=== PATIENT | male | born 1945 | race Hispanic/Latino ===

== ENCOUNTER 2017-05-31 12:36 | Outpatient (CLI) | payer MEDICARE, OTHER ==
[2017-05-31 13:29] LABS: Anion Gap 19 mmol/L (10-20); BUN (Urea Nitrogen) 7 mg/dL (8.4-25.7); Calc. Creatinine Clearance 0 mL/min (70-130); Calcium 9.9 mg/dL (7.8-10.44); Carbon Dioxide 27 mmol/L (23-31); Chloride 97 mmol/L (98-107); Estimated GFR-MDRD Greater than 90
[2017-05-31] MEDS ORDERED: Iopamidol 370 76% 100 ML VIAL ONE (16:32)
--- NOTE | 2017-05-31 19:16 | CT ---
CT ABDOMEN WITH AND WITHOUT IV CONTRAST CT PELVIS WITH AND WITHOUT IV CONTRAST: Date: 05-31-17 History: Urinary retention. Suprapubic catheter in place. Comparison: 11-11-15 FINDINGS: Lung bases remain clear. Again noted is partial visualization of the coronary artery calcifications as well as vascular calci fications in the abdominal aorta and iliac arteries. There is a stable left adrenal gland adrenal adenoma. 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 A suprapubic catheter is noted in place in a decompressed urinary bladder. Greer of the urinary blad daniela do appear thickened, likely related to combination of the decompressed nature of the urinary greg dder as well as chronic indwelling suprapubic catheter. The liver, spleen, pancreas, and right adrenal gland demonstrate a normal CT appearance. Tiny amount of free fluid is seen in the pelvis. Appendix is visualized and normal in caliber. There has been no other interval change compared to the prior study aside from interval placement of the suprapubic catheter. IMPRESSION: 1. Horseshoe shaped kidney with mild caliectasis unchanged from prior study. Ureters are normal in c aliber where visualized, and there is contrast seen in the urinary bladder on delayed images. 2. Urinary bladder is completely decompressed with Bae catheter in place. 3. No renal or ureteral calculi are seen bilaterally. 4. Stable left adrenal adenoma. 5. Small amount of free fluid in the pelvis. POS: [facility]
== END 2017-05-31 12:37 | disposition home or self-care (01) ==
LOC: CT 12:36
PROVIDERS: ATTEND Urology
DX: N31.2 Flaccid neuropathic bladder, not elsewhere classified (principal); R33.9 Retention of urine, unspecified; Q63.1 Lobulated, fused and horseshoe kidney
CPT/HCPCS: 36415; 74178; 80048

== ENCOUNTER 2017-08-30 08:43 | Emergency (ER) | payer MEDICARE, OTHER ==
[2017-08-30 09:23] LABS: #Eosinphils 0.1 thou/uL (0.0-0.7); #Lymphocytes 1.3 thou/uL (1.20-3.40); #Monocytes 0.3 thou/uL (0.11-0.59); %Basophils 0.4 % (0.0-1.0); %Eosinophils 1.1 % (0.0-10.0); %Lymphocytes 22.4 % (21.0-51.0); %Monocytes 5.7 % (0.0-10.0); %Neutrophils 70.4 % (42.0-75.0); Hemoglobin 15.4 g/dL (14.0-18.0); Mean Corpuscular HGB CONC 34.5 g/dL (32.0-36.0); Mean Corpuscular Hemoglobin 35.9 pg (27.0-31.0); Mean Platelet Volume 6.9 fL (7.4-10.4); Platelet Count 230 thou/uL (130-400); RBC Distribution Width 12.3 % (11.5-14.5); White Blood Cell (WBC) Count 5.6 thou/uL (4.8-10.8)
[2017-08-30 09:37] LABS: ALT (SGPT) Less than 7 U/L (8-55); AST (SGOT) 5 U/L (5-34); Albumin 3.3 g/dL (3.4-4.8); Alkaline Phosphatase 101 U/L (40-150); Anion Gap 23 mmol/L (10-20); BUN (Urea Nitrogen) 7 mg/dL (8.4-25.7); Bilirubin, Total 0.5 mg/dL (0.2-1.2); Calc. Creatinine Clearance 0 mL/min (70-130); Calcium 8.8 mg/dL (7.8-10.44); Carbon Dioxide 20 mmol/L (23-31); Chloride 92 mmol/L (98-107); Estimated GFR-MDRD 50; Globulin 2.7 g/dL (2.4-3.5); Sodium 131 mmol/L (136-145)
[2017-08-30 09:41] LABS: Bilirubin Negative (Negative); Blood, Urine Trace (Negative); Clarity CLOUDY (Clear); Glucose, Urine (Dipstick) >=1000 mg/dL (Negative); Leukocyte Moderate (Negative); Nitrite Negative (Negative); Protein, Urine (Dipstick) Negative (Neg-Trace); Specific Gravity, Urine 1.037 (1.002-1.036); Urobilinogen 0.2 mg/dL (0.2-1.0); pH, Urine 5.5 (5.0-9.0)
[2017-08-30 09:44] LABS: Pathc Cast-AUWi Flag 3.19 (0-2.49); Yeast-AUWi Flag 6103.8 (0-25.0)
[2017-08-30 09:50] LABS: Glucose 861 mg/dL (83-110)
[2017-08-30 09:57] LABS: Yeast-All Forms 4+ HPF (None Seen)
[2017-08-30 09:59] LABS: Bacteria/HPF 2+ HPF (None Seen); Hyaline Casts/LPF NONE SEEN LPF (0-3 Hyaline); Manual Microscopic Reviewed? No Path Casts Seen; Squamous Epithelial None Seen HPF (0-3)
[2017-08-30] MEDS ORDERED: Insulin Regular 300 UNITS/3 ML VIAL ONE (10:15)
[2017-08-30] MEDS ORDERED: Prochlorperazine 10 MG/2 ML VIAL IM SCH (10:15)
--- NOTE | 2017-09-25 18:59 | EKG ---
Test Reason : Blood Pressure : / mmHG Vent. Rate : 088 BPM Atrial Rate : 088 BPM P-R Int : 146 ms QRS Dur : 144 ms QT Int : 434 ms P-R-T Axes : 089 -86 045 degrees QTc Int : 525 ms Sinus rhythm with Premature atrial complexes Right bundle branch block Left anterior fascicular block Bifascicular block Abnormal ECG Confirmed by ANIYA RUIZ, MARYSOL Turner ([id number]), manuscript editor JUAN MANUEL YI ([id number]) on 09/25/2017 6:58:23 PM Referred By: Confirmed By:MARYSOL KWAN MD
== END 2017-08-30 14:55 | disposition home or self-care (01) ==
LOC: ERS 08:43
DX: E11.65 Type 2 diabetes mellitus with hyperglycemia (principal); F32.9 Major depressive disorder, single episode, unspecified; F17.210 Nicotine dependence, cigarettes, uncomplicated; Z79.4 Long term (current) use of insulin; Z79.899 Other long term (current) drug therapy; N40.0 Benign prostatic hyperplasia without lower urinary tract symptoms
CPT/HCPCS: 36415; 36416; 51702; 80053; 81003; 81015; 82803; 83605; 85025; 87086; 93005; 96361; 96372; 96374; J0780; J1815

== ENCOUNTER 2017-09-08 15:32 | Inpatient (IN) | payer MEDICARE, OTHER ==
--- NOTE | 2017-09-08 16:28 | CT ---
CT BRAIN NONCONTRAST: HISTORY: A 72-year-old male with altered mental status: confusion and decreased responsiveness. FINDINGS: There is no midline shift or any other mass effect. There is no evidence of acute intracranial hemor rhage, large cortical infarct, or extraaxial fluid collection. The calvarium is intact. There is di ffuse parenchymal volume loss. There are low attenuation areas in the white matter. These are nonsp ecific, but in a patient of this age, they are probably chronic ischemic white matter changes due to microvascular atherosclerosis. There is mild to moderate dilation of the lateral ventricles and the third ventricle, somewhat out of proportion to the cortical atrophy. This is probably on an ex vacuo basis due to brain parenchymal volume loss, and less likely to represent normal-pressure hydrocephal us. Recommend clinical correlation (is there is gait apraxia, urinary incontinence, and/or dimension ?). There is opacification of many of the bilateral mastoid air cells, right greater than left. The frontal and sphenoid sinuses are grossly clear. IMPRESSION: 1) No acute intracranial hemorrhage or mass effect. 2) Involutional changes and chronic ischemic white matter changes. 3) Ventriculomegaly. 4) Bilateral mastoid effusions, greater than left. jn [] POS: [facility]
--- NOTE | 2017-09-08 16:46 | RAD ---
CHEST ONE VIEW 09/08/17 HISTORY: Chest pain. Altered mental status. COMPARISON: 01/04/12. FINDINGS: The cardiac silhouette is magnified by projection. Pulmonary vasculature is unremarkable. Mediastinum is midline with aortic calcification. Ill-defined parenchymal infiltrate projects over the right base. Postoperative and old posttraumatic changes of the left shoulder are partially visualized. Old right clavicular fracture is also evident. IMPRESSION: 1. Subtle right basilar infiltrate. Clinical correlation regarding other signs and symptoms of r ight basilar pneumonitis is required. Continued radiographic followup after medical treatment is [place]. 2. COPD. 3. Atherosclerosis. POS: [facility]
[2017-09-08] MEDS ORDERED: NACL ISO OSM IVPB SCH ×2 (17:15)
[2017-09-08] MEDS ORDERED: Sodium Chloride 0.9% 1,000 ML IV SCH (17:15)
[2017-09-08] MEDS ORDERED: FLUCONAZOLE IVPB SCH ×2 (17:15)
[2017-09-08] MEDS ORDERED: ADMIXTURE FEE CHEMO IVPB SCH ×2 (17:15)
[2017-09-08 17:18] LABS: Base Excess-Venous -0.1 mmol/L (-30.0-30.0); Bicarbonate (HCO3v) 23.6 mmol/L (1.0-85.0); CO2 Tension (PvCO2) 35.2 mmHg (41.0-51.0); Calcium, Ionized 0.96 mmol/L (1.12-1.32); Hemoglobin - Calc 18.8 g/dL (12.0-18.0); O2 Tension (PvO2) 33.1 mmHg (35.0-45.0); Potassium 3.1 mmol/L (3.4-4.7); T. Carbon Dioxide 24.6 mmol/L (1.0-85.0); pH (Venous) 7.433 (7.35-7.45); vO2 Saturation-calc 66.4 % (0.0-100.0)
[2017-09-08 17:28] LABS: #Eosinphils 0.1 thou/uL (0.0-0.7); #Lymphocytes 1.2 thou/uL (1.20-3.40); #Monocytes 0.6 thou/uL (0.11-0.59); #Neutrophils 4.3 thou/uL (1.40-6.50); %Basophils 0.2 % (0.0-1.0); %Eosinophils 0.8 % (0.0-10.0); %Lymphocytes 20.1 % (21.0-51.0); %Monocytes 9.8 % (0.0-10.0); %Neutrophils 69.1 % (42.0-75.0); Hemoglobin 16.3 g/dL (14.0-18.0); Mean Corpuscular HGB CONC 35.7 g/dL (32.0-36.0); Mean Corpuscular Hemoglobin 36.1 pg (27.0-31.0); Mean Platelet Volume 6.6 fL (7.4-10.4); Platelet Count 303 thou/uL (130-400); RBC Distribution Width 12.5 % (11.5-14.5); Red Blood Cell (RBC) Count 4.52 mill/uL (4.70-6.10); White Blood Cell (WBC) Count 6.1 thou/uL (4.8-10.8)
[2017-09-08 17:34] LABS: Bilirubin Small (Negative); Blood, Urine Large (Negative); Clarity TURBID (Clear); Glucose, Urine (Dipstick) >=1000 mg/dL (Negative); Leukocyte Moderate (Negative); Nitrite Negative (Negative); Protein, Urine (Dipstick) 100 mg/dL (Neg-Trace)
[2017-09-08 17:38] LABS: Pathc Cast-AUWi Flag 11.81 (0-2.49); Yeast-AUWi Flag 8511.6 (0-25.0)
[2017-09-08 17:43] LABS: ALT (SGPT) 7 U/L (8-55); AST (SGOT) 8 U/L (5-34); Albumin 3.4 g/dL (3.4-4.8); Alkaline Phosphatase 139 U/L (40-150); Anion Gap 27 mmol/L (10-20); BUN (Urea Nitrogen) 6 mg/dL (8.4-25.7); Bilirubin, Total 0.5 mg/dL (0.2-1.2); CKMB 2.2 ng/mL (0-6.6); Calc. Creatinine Clearance 0 mL/min (70-130); Calcium 9.4 mg/dL (7.8-10.44); Carbon Dioxide 20 mmol/L (23-31); Chloride 92 mmol/L (98-107); Estimated GFR-MDRD 73; Glucose 376 mg/dL (83-110); Protein, Total 6.4 g/dL (5.8-8.1); Sodium 135 mmol/L (136-145); Troponin I 0.013 ng/mL (< 0.028)
[2017-09-08 17:46] LABS: Hyaline Casts/LPF 0-3 HYALINE CAST LPF (0-3 Hyaline); Yeast-All Forms 3+ HPF (None Seen)
[2017-09-08 17:47] LABS: Bacteria/HPF 3+ HPF (None Seen)
[2017-09-08] MEDS ORDERED: NS 0.9% w/ 20 MEQ KCL 1,000 ML IV SCH (19:45)
--- NOTE | 2017-09-08 19:45 | CON ---
DATE OF CONSULTATION: 09/08/2017 PRIMARY CARE PHYSICIAN: Lara Wolf NP REASON FOR CONSULT: Mental status changes, hyperglycemia. HISTORY OF PRESENT ILLNESS: Mr. Solis is a 72-year-old male, , Citizen Of [place] speaking with history of poorly-controlled diabetes, noncompliant with medical therapy. He has a history of atonic bladder, failed CICs due to noncompliance. He developed subsequent epididymal orchitis in the past as he was noncompliant with CICs. He was subsequently transitioned to suprapubic tube which I have been changing every 6 weeks. He has a history of poorly compliance with medical and endocrinology followup. It took multiple trials to have patient be seen and followed up with Endocrinology. He continues to have poor dietary habits despite his hemoglobin A1c grossly elevated at 13.8. He previously presented to my office in late July as he pulled out his SPT catheter, this was replaced by my staff as I was out of the office. He came in today to my office for a suprapubic tube exchange; however, there is significant mental status change which he is confused, decreased mobility, appears cachectic. I did not want the patient driving further, as he drove himself to my office appointment. He denies history of fever. Upon exam, his mobility has decreased, and his suprapubic tube is not in situ. He does not recall when it was removed. Upon following up with his family per his , he did have a suprapubic tube yesterday; per patient, he does not recall why it no longer remains in place. Patient's suprapubic tube was replaced in my office 16-Martiniquais 30 mL, he previously had a 24-Martiniquais suprapubic tube. He states that he was in the emergency room 2 days ago, review of records relate that on 08/30/2017, he did present to the emergency room with glucose over 800, hemoglobin A1c 13.8/12. His vital signs demonstrated hypotension 80/50 in my office. Currently in the emergency room with IV fluid hydration, his blood pressure improved 119/73, 80, 20, 97.8. Due to mental status changes, and repeat presentation with poorly-controlled diabetes, I do recommend medical admission for workup for fatigue, mental status changes, as there was concern for diabetic ketoacidosis. PAST MEDICAL HISTORY: Diabetes, history of DKA in 2008, history of urinary retention, hypertension, followed by Dr. Randall, hyperlipidemia, history of right bundle-branch block, osteoarthritis; history of atrial fibrillation flutter, status post ablation, resolved; cardiomyopathy, mild; history of phimosis, history of poorly-controlled diabetes followed by Dr. Clarke. PAST SURGICAL HISTORY: Left rotator cuff surgery, cystoscopies cytology 2015. Urodynamics in 12/2015, suprapubic tube placement by Interventional Radiology in 08/2016 FAMILY HISTORY: Noncontributory. HOME MEDICATIONS: Include baby aspirin, Humalog, Levemir, vitamin D3. ALLERGIES: No known drug allergies. PHYSICAL EXAMINATION: VITAL SIGNS: In my office is 80/50, heart rate 64, temperature 97.5. The emergency room blood pressure 119/73, 80, 20, 97.8. GENERAL: Patient appears more alert, oriented x3. HEENT: Grossly unremarkable. HEART: Regular. LUNGS: Clear. ABDOMEN: Soft, there is gross laxity of his abdomen, generalized overall significant weight loss with evidence of some temporal wasting is appreciated. GENITOURINARY: I did replace his suprapubic tube in my office today, it is adequately secured, there is yellow urine with sediment to his debris. : Demonstrates phimosis with no obvious cellulitis, purulent discharge is not appreciated. There is no scrotal edema, cellulitic changes, fluctuant mass appreciated. EXTREMITIES: No cyanosis, clubbing or edema. PERTINENT LABS: PSA 0.3 in 07/2017. Previous cytology is negative. Recent creatinine is 1.4 up from baseline of 0.7-0.8. A1c variable from 13 to 12. Labs obtained by the emergency room are pending. IMPRESSION/PLAN: Mr. Solis is a 72-year-old male with history of poorly-controlled diabetes, noncompliant to medical therapy. Urologic issue of history of atonic bladder, on chronic SP tube. I replaced his Bae catheter today uneventfully, there is significant to his debris. Previous urine culture from the ER visit on 08/30/2017 demonstrates yeast species. As there are mental status changes, I would recommend treatment of his bacteruria/funguria/ . Repeat UA, C&S is pending. Diflucan IV is advised for now. Recommend medical admission due to poorly-controlled diabetes, mental status changes, cachexia. MTDD
[2017-09-08] MEDS ORDERED: Insulin Regular 100 units/100 ml in NS IVPB SCH (20:00)
[2017-09-08] MEDS ORDERED: Acetaminophen 325 MG TAB PO PRN (20:03)
[2017-09-08] MEDS ORDERED: Sodium Chloride 0.9% 1,000 ML IV PRN ×4 (20:03)
[2017-09-08] MEDS ORDERED: CCU Electrolyte Replacement 1 EACH IVPB SCH (20:03)
[2017-09-08] MEDS ORDERED: Dextrose 5 %-0.45 % NaCl 1,000 ML IV PRN (20:03)
[2017-09-08] MEDS ORDERED: NS 0.9% w/ 20 MEQ KCL 1,000 ML IV PRN ×2 (20:03)
[2017-09-08] MEDS ORDERED: Acetaminophen 650 MG Suppository PR PRN (20:03)
[2017-09-08] MEDS ORDERED: Potassium Chloride 40 MEQ in Premix Bag 1 BAG IVPB PRN (20:25)
[2017-09-08] MEDS ORDERED: Potassium Chloride 20 MEQ TAB PO PRN (20:25)
[2017-09-08] MEDS ORDERED: CCU ELECTROLYTE REPLACEMENT PROTOCOL FS PRN (20:25)
[2017-09-08] MEDS ORDERED: Magnesium 2 GM/NS 0.9% 100 ML 2 GM in Premix Bag 1 BAG IVPB PRN (20:25)
[2017-09-08] MEDS ORDERED: Magnesium Oxide 400 MG TAB PO PRN ×2 (20:25)
[2017-09-08] MEDS ORDERED: Potassium Phosphate 15 MMOL in Sodium Chloride 0.9% 250 ML 250 ML IV PRN (20:25)
[2017-09-08] MEDS ORDERED: Potassium Chloride 40 MEQ in Sodium Chloride 0.9% 250 ML 250 ML IVPB PRN (20:25)
[2017-09-08] MEDS ORDERED: Potassium Phosphate 9 MMOL in Sodium Chloride 0.9% 100 ML IVPB PRN (20:25)
[2017-09-08] MEDS ORDERED: Potassium Phosphate 12 MMOL in Sodium Chloride 0.9% 250 ML 250 ML IV PRN (20:25)
--- NOTE | 2017-09-08 20:58 | HP ---
PRIMARY CARE PHYSICIAN: Lara Wolf NP CHIEF COMPLAINT: Altered mental status. HISTORY OF PRESENT ILLNESS: Mr. Solis is a pleasant 72-year-old gentleman who was seen at [facility] on 09/08/2017, after he was sent to the emergency room by his urologist. He has a history of chronic suprapubic catheterization. He was seen at his urologist's office today for changing the suprapubic catheter. There, he was found to have confusion. He was also noted to h ave the suprapubic catheter removed. It was replaced by his urologist. He was then sent to the located within [facility] room for altered mental status. He denies any chest pain or shortness of breath. He denies any cough or fevers or chills. He report s losing weight. He reports that he was 265 pounds 8 years ago and is now 69 pounds. He denies any abdominal pain. He reports that he is compliant with his medications. REVIEW OF SYSTEMS: The following complete review of systems was negative, unless otherwise mentioned in the HPI or below: Constitutional: Weight loss or gain, ability to conduct usual activities. Sk in: Rash, itching. Eyes: Double vision, pain. ENT/Mouth: Nose bleeding, neck stiffness, pain, te nderness. Cardiovascular: Palpitations, dyspnea on exertion, orthopnea. Respiratory: Shortness of breath, wheezing, cough, hemoptysis, fever, or night sweats. Gastrointestinal: Poor appetite, abdo sonali pain, heartburn, nausea, vomiting, constipation, or diarrhea. Genitourinary: Urgency, frequen cy, dysuria, nocturia. Musculoskeletal: Pain, swelling. Neurologic/Psychiatric: Anxiety, depressi on. Allergy/Immunologic: Skin rash, bleeding tendency. PAST MEDICAL HISTORY: Significant for diabetes mellitus, urinary retention, hypertension, dyslipidem ia, right bundle branch block, osteoarthritis, atrial fibrillation/flutter, status post ablation, car diomyopathy, phimosis, and poorly-controlled diabetes. PAST SURGICAL HISTORY: Significant for left rotator cuff surgery, suprapubic catheter placement. FAMILY HISTORY: He denies any family history of coronary artery disease. PSYCHIATRIC HISTORY: Significant for depression. SOCIAL HISTORY: Patient reports smoking 6 or 7 cigarettes a day. He denies any alcohol use or recre ational drug use. ALLERGIES: No known drug allergies. CURRENT MEDICATIONS: Include Xyzal 5 mg daily; garlic 580 mg daily; Humalog insulin, unknown dose; t amsulosin 0.4 mg daily; and Levemir insulin, unknown dose. PHYSICAL EXAMINATION: GENERAL: Mr. Solis is awake and alert, not in acute distress. VITAL SIGNS: He is afebrile. Blood pressure is 119/66, pulse is 76. He is breathing at rate of 16 and saturating 95% on room air. He appears cachectic. EYES: No scleral icterus, no conjunctival pallor. ENT: Dry mucosal membranes, no oropharyngeal erythema or exudates. NECK: Supple, nontender, normal range of movement. Trachea is midline. RESPIRATORY: Accessory muscles of breathing are not active. Chest wall movements are symmetric bila terally. Lungs are clear to auscultation without wheeze, rhonchi, or crepitations. CARDIOVASCULAR: S1 and S2 are heard, regular. Peripheral pulses palpable. No carotid bruit, no per icardial rub. ABDOMEN: Soft, nontender, bowel sounds heard, suprapubic catheter in place, no hepatomegaly, no sple nomegaly. NEUROLOGIC: Cranial nerves II-XII intact. Deep tendon reflexes 2+. SKIN: No rashes or subcutaneous nodules. MUSCULOSKELETAL: Power is 5/5 in all 4 extremities. LYMPHATIC: No cervical lymphadenopathy. PSYCHIATRIC: Normal mood, normal affect, patient is oriented to person and place, not to time. LABORATORY DATA: Mr. Solis labs and investigations were reviewed. I reviewed his director appointment , which shows normal sinus rhythm. I also reviewed his chest x-ray, which shows no pulmonary infiltr ates. Radiologist reports suggest that there is an ill-defined parenchymal infiltrate over the right base. He had noncontrast CT scan of the brain, which did not show any acute intracranial abnormalit ies. He has bilateral mastoid effusions. Laboratory investigations show normal white count, normal hemoglobin, normal platelet count, decreased sodium of 135, normal potassium, decreased chloride of 9 2, decreased carbon dioxide of 20, elevated anion gap of 27, normal creatinine, normal lactic acid, u nremarkable liver profile, urinalysis positive for blood, bilirubin and leukocyte esterase, and eleva mariana beta-hydroxybutyrate of 7.95. ASSESSMENT AND PLAN: Mr. Solis is a pleasant 72-year-old gentleman who was seen at [facility] on 09/08/2017. His problem list includes: 1. Diabetic ketoacidosis. Mr. Solis is presenting with diabetic ketoacidosis. He will be admitted to the hospital for further management per diabetic ketoacidosis protocol. 2. Encephalopathy: He reportedly had altered mental status. He appears to be improving clinically. We will continue to monitor. We will check electrocardiogram to rule out acute coronary syndrome a s a cause of his altered mental status. I should note that he has a normal troponin I. 3. Urinary tract infection. His urinalysis is suggestive of urinary tract infection. Urologist is recommending, starting him on antibiotics as well as antifungals. This is based on his previous urin e culture results. I cannot start him on fluoroquinolones because of interaction with fluconazole. I will start him on meropenem to cover ESBL organisms for now. Antibiotic spectrum can be narrowed o nce culture results are available. 4. Hyponatremia: Mild, we will recheck. 5. Radiologist reports that chest x-ray suggestive of pneumonia. Clinically, he does not have any c ough. We will continue meropenem for now. 6. Hypertension: Monitor vital signs, titrate antihypertensives as needed. Many thanks for allowing me to participate in your patient's care. Please feel free to contact me wi th any questions or concerns. LEVEL OF RISK: High. LEVEL OF COMPLEXITY: High.
[2017-09-08 22:00] LABS: Anion Gap 24 mmol/L (10-20); BUN (Urea Nitrogen) 6 mg/dL (8.4-25.7); Calc. Creatinine Clearance 0 mL/min (70-130); Calcium 8.9 mg/dL (7.8-10.44); Carbon Dioxide 23 mmol/L (23-31); Chloride 95 mmol/L (98-107); Estimated GFR-MDRD Greater than 90; Glucose 279 mg/dL (83-110); Potassium 3.2 mmol/L (3.5-5.1); Sodium 139 mmol/L (136-145)
[2017-09-08] MEDS ORDERED: Meropenem 1 GM in Sodium Chloride 0.9% 100 ML IVPB SCH (22:00)
[2017-09-08] MEDS ORDERED: Piperacillin/Tazobactam 4.5 GM in Sodium Chloride 0.9% 100 ML IVPB SCH (22:00)
[2017-09-09] MEDS: Meropenem 1 GM in Sterile Water 20 ML SLOW IVP SCH ×4 (00:11→21:31)
[2017-09-09 01:14] LABS: Anion Gap 19 mmol/L (10-20); BUN (Urea Nitrogen) 6 mg/dL (8.4-25.7); Calc. Creatinine Clearance 71 mL/min (70-130); Calcium 8.9 mg/dL (7.8-10.44); Carbon Dioxide 24 mmol/L (23-31); Chloride 100 mmol/L (98-107); Estimated GFR-MDRD Greater than 90; Glucose 186 mg/dL (83-110); Potassium 3.4 mmol/L (3.5-5.1); Sodium 140 mmol/L (136-145)
[2017-09-09] MEDS: D5 1/2 NS w/20 mEq KCL 1,000 ML IV PRN ×2 (01:35→05:38)
[2017-09-09] MEDS: Nicotine 14 MG PATCH TD SCH ×2 (01:35→21:46)
[2017-09-09 05:44] LABS: #Eosinphils 0.1 thou/uL (0.0-0.7); #Lymphocytes 1.6 thou/uL (1.20-3.40); #Monocytes 0.5 thou/uL (0.11-0.59); #Neutrophils 2.8 thou/uL (1.40-6.50); %Basophils 0.7 % (0.0-1.0); %Eosinophils 1.4 % (0.0-10.0); %Lymphocytes 31.4 % (21.0-51.0); %Monocytes 10.4 % (0.0-10.0); Hemoglobin 13.8 g/dL (14.0-18.0); Mean Corpuscular HGB CONC 35.3 g/dL (32.0-36.0); Mean Corpuscular Hemoglobin 35.7 pg (27.0-31.0); Mean Platelet Volume 6.3 fL (7.4-10.4); Platelet Count 270 thou/uL (130-400); RBC Distribution Width 12.4 % (11.5-14.5); Red Blood Cell (RBC) Count 3.85 mill/uL (4.70-6.10); White Blood Cell (WBC) Count 5.1 thou/uL (4.8-10.8)
[2017-09-09 06:00] LABS: Anion Gap 12 mmol/L (10-20); BUN (Urea Nitrogen) 6 mg/dL (8.4-25.7); Calc. Creatinine Clearance 79 mL/min (70-130); Calcium 8.5 mg/dL (7.8-10.44); Carbon Dioxide 28 mmol/L (23-31); Chloride 102 mmol/L (98-107); Estimated GFR-MDRD Greater than 90; Glucose 145 mg/dL (83-110); Potassium 3.1 mmol/L (3.5-5.1); Sodium 139 mmol/L (136-145)
[2017-09-09 08:04] VITALS: BMI 21.9
--- NOTE | 2017-09-09 08:46 | PRG ---
DATE OF SERVICE: 09/09/2017 SUBJECTIVE: The patient is more alert, oriented x3, denies abdominal pain, penile scrotal discomfort. PHYSICAL EXAMINATION: VITAL SIGNS: 98.3, 64, 18, 96/54. I's and O's is 3100 in and 2100 out. Urine output is concentrated yellow. ABDOMEN: Soft, scaphoid, suprapubic tube site clean, dry, and intact. GENITOURINARY: Catheter is adequately secured. There is no evidence of penile scrotal edema or crepitus. Some purulent discharge at the prepuce. PERTINENT LABORATORY DATA AND IMAGING: White count is 5.1, hemoglobin 13.8, platelets 270. Sodium 139, potassium 3.1, 0.68 creatinine, lactic acid is within normal limits. Beta hydroxybutyrate is 7.95. Blood sugars have been running on admission 466, currently 180. CT of the brain, no acute findings. Chest x-ray is grossly unremarkable. Urinalysis greater than 1000 glucose, has evidence of bacteria and yeast species. It is colonized with squamous epithelials, as expected. IMPRESSION AND PLAN: Mr. Solis is a 72-year-old male, [place] speaking with history of diabetes, poorly controlled, noncompliance. 1. History of chronic suprapubic tube due to atonic bladder. He presented to my office yesterday with mental status changes. He was transitioned to the ER, admitted for diabetic ketoacidosis. Previous blood sugar 2 weeks ago in the emergency room of glucose greater than 800. Continue strict control of his diabetes. His urine culture as expected is colonized. I do feel at this point it is symptomatic urinary tract infection component in addition to his diabetic ketoacidosis, recommend aggressive treatment. Agree with Diflucan IV and meropenem for now. Blood culture is negative thus far. Pending his final culture, Infectious Disease consult will likely be required. CANDICE
[2017-09-09] MEDS: Enoxaparin Sodium 40 MG/0.4 ML SYRINGE SC SCH (09:34)
[2017-09-09] MEDS ORDERED: Dextrose 50% Abboject 50 ML SYRINGE IVP PRN (12:11)
[2017-09-09] MEDS ORDERED: Dextrose 5% in Water 1,000 ML IV PRN (12:11)
[2017-09-09] MEDS: Sodium Chloride 0.45% 1,000 ML IV SCH ×2 (13:26→21:31)
--- NOTE | 2017-09-09 15:39 | PDOC.PN ---
- Subjective Encounter Start Date: 09/09/17 Encounter Start Time: 15:30 Subjective: Feeling better. Less confused. - Objective MAR Reviewed: Yes Vital Signs & Weight: Vital Signs (12 hours) Temp Pulse Resp BP BP Pulse Ox 09/09/17 11:56 97.5 F L 72 18 112/67 97 09/09/17 08:00 97.6 F 77 16 90 L 09/09/17 07:38 97.6 F 72 18 105/65 99 09/09/17 04:05 98.3 F 64 18 96/54 L 96 Weight Admit Weight 124 lb 5 oz Weight 131 lb 15.993 oz I&O: 09/08/17 09/09/17 09/10/17 06:59 06:59 06:59 Intake Total 2610 1377 Output Total 300 100 Balance 2310 1277 Result Diagrams: 09/09/17 05:21 09/09/17 05:21 Additional Labs: Accuchecks 09/09/17 09/09/17 09/09/17 11:04 09:59 08:59 POC Glucose 162 H 123 H 147 H 09/09/17 09/09/17 09/09/17 07:56 07:11 05:56 POC Glucose 156 H 180 H 149 H 09/09/17 09/09/17 09/09/17 05:02 04:07 03:00 POC Glucose 163 H 486 H 235 H 09/09/17 09/09/17 09/09/17 01:57 01:07 00:19 POC Glucose 215 H 183 H 275 H 09/08/17 23:11 POC Glucose 223 H Phys Exam - Physical Examination Constitutional: NAD HEENT: moist MMs Respiratory: no wheezing, no rales, no rhonchi Cardiovascular: RRR, no significant murmur Gastrointestinal: soft, non-tender, positive bowel sounds suprapubic cath in place Musculoskeletal: no edema Neurological: non-focal, moves all 4 limbs Psychiatric: normal affect, A&O x 3 Dx/Plan (1) UTI (urinary tract infection) due to urinary indwelling Bae catheter Code(s): T83.511A - I/I REACT D/T INDWELLING URETHRAL CATHETER, INIT; N39.0 - URINARY TRACT INFECTION, SITE NOT SPECIFIED Status: Acute Qualifiers: Indwelling urinary catheter type: cystostomy catheter Comment: On Fluconazole and Meropenem, urine culture pending (2) Diabetic ketoacidosis Code(s): E13.10 - OTH DIABETES MELLITUS WITH KETOACIDOSIS WITHOUT COMA Status : Resolved (3) DM2 (diabetes mellitus, type 2) Status: Chronic (4) Indwelling catheter present on admission Code(s): Z93.6 - OTHER ARTIFICIAL OPENINGS OF URINARY TRACT STATUS Status: Chronic - Plan cont current plan of care, continue antibiotics Gap acidosis resolved and blood sugars normalized. -: ? Pneumonia on CXR -: Awaiting culture results * . - Discharge Day Encounter end time: 16:00
[2017-09-09] MEDS ORDERED: Fluconazole In NaCl,Iso-Osm 200 MG in Premix Bag 1 BAG IVPB SCH ×2 (17:00)
[2017-09-09] MEDS: Insulin Regular 300 UNITS/3 ML VIAL SC PRN ×2 (18:17→21:34)
--- NOTE | 2017-09-09 21:01 | CON ---
DATE OF CONSULTATION: 09/09/2017 HISTORY OF PRESENT ILLNESS: Mr. Solis is a 72-year-old male. His urologist him to the ER, when he p resented to the office for changing of a suprapubic catheter and was felt to be confused. He subsequ ently has been admitted with a diagnosis of Diabetic ketoacidosis. PAST MEDICAL HISTORY: 1. Remarkable for diabetes type 2. 2. Urinary retention with SP tube in place. 3. Hypertension. 4. Lipid disorder. 5. Degenerative arthritis. 6. History of atrial fibrillation with an ablation. 7. History of cardiomyopathy. 8. History of rotator cuff surgery. 9. History of an ejection fraction of 45% in 2011. 10. History of an adrenal adenoma seen on CAT scans in the past. 11. History of coronary calcifications seen on CT in the past. 12. History of calcifications of the abdominal aorta, and iliac arteries. FAMILY HISTORY: Negative for lung disease at an early age. REVIEW OF SYSTEMS: Negative. His only complaint is he was not given breakfast he says he is fine ot herwise and does not want to be here. The remainder of ten point review of systems was negative. PHYSICAL EXAMINATION: VITAL SIGNS: Afebrile, heart rate 78, respiratory rate 18, oximetry is 94% on room air, blood pressu re 112/67 this afternoon. Vital signs are stable this morning. HEENT: Pupils are equal. Sclerae is anicteric. NECK: Supple. Extraocular movements are full. LUNGS: Clear. HEART: Regular rhythm, no S3. ABDOMEN: Soft and nontender. EXTREMITIES: Without clubbing, cyanosis, or edema. LABORATORY AND X-RAY FINDINGS: He is oriented x3. He knew it was the and knew that it was , but he could not tell me that it was August. White count is 5.1, yesterday it was 6.1, hemogl obin 13.8, yesterday was 16.3, MCV 101, platelets 270,000. Sodium 139, potassium 3.2, chloride 102, bicarbonate 20, BUN 6, creatinine 0.68, glucose was 466 on admission I found on August 30, glucose w as greater than 550. IMPRESSION: Intravascular volume depletion, resolving with volume resuscitation. Intake and output is positive 2109 and his creatinine has come down as his hemoglobin. I doubt this is diabetic ketoac idosis. Most likely type 2 diabetes with mild hyperosmolar syndrome associated with intravascular vo lume depletion. My question is ability to care for himself. He lives at home with his and she probably is not e ntirely capable of caring for him. He needs hydration, his insulin drip needs to be stopped. He will be transferred out of the [facility] care unit to a medical bed. He was started on Diflucan for yeast isolated in his urine, but he has a suprapubic catheter and will always have an organism isolated from his urine. It is extremely unlikely that he has a Rubia bacteremia, it would justify the use of antifungal agents. I wonder what his baseline mental status is and wonder if he has some multi infarct dementia/white ma tter disease owing to his diabetes. I do not think he has the clinical findings consistent with pneu monia. His radiographic abnormalities have been reviewed. This could simply be secondary to mucous plugging. His antimicrobial therapy can be simplified in the morning. Transfer home probably in 24 to 48 hours with a review of his 's ability to care for him to be considered. This is a 50-minute consult, greater than 50% of the time was spent in coordinating care as well as r eviewing old records, old radiographs. There is no family available to confer with.
[2017-09-10 05:47] LABS: #Eosinphils 0.1 thou/uL (0.0-0.7); #Lymphocytes 1.6 thou/uL (1.20-3.40); #Monocytes 0.4 thou/uL (0.11-0.59); #Neutrophils 2.6 thou/uL (1.40-6.50); %Basophils 0.9 % (0.0-1.0); %Eosinophils 1.7 % (0.0-10.0); %Lymphocytes 33.9 % (21.0-51.0); %Monocytes 8.7 % (0.0-10.0); %Neutrophils 54.8 % (42.0-75.0); Hemoglobin 13.4 g/dL (14.0-18.0); Mean Corpuscular HGB CONC 35.1 g/dL (32.0-36.0); Mean Corpuscular Hemoglobin 35.8 pg (27.0-31.0); Mean Platelet Volume 6.3 fL (7.4-10.4); Platelet Count 258 thou/uL (130-400); RBC Distribution Width 12.7 % (11.5-14.5); Red Blood Cell (RBC) Count 3.75 mill/uL (4.70-6.10); White Blood Cell (WBC) Count 4.7 thou/uL (4.8-10.8)
[2017-09-10] MEDS: Insulin Regular 300 UNITS/3 ML VIAL SC PRN ×3 (05:55→17:27)
[2017-09-10] MEDS: Sodium Chloride 0.45% 1,000 ML IV SCH ×4 (05:57→22:46)
[2017-09-10] MEDS: Meropenem 1 GM in Sterile Water 20 ML SLOW IVP SCH ×2 (05:57→13:16)
[2017-09-10 06:11] LABS: Anion Gap 10 mmol/L (10-20); BUN (Urea Nitrogen) 5 mg/dL (8.4-25.7); Calc. Creatinine Clearance 104 mL/min (70-130); Calcium 8.4 mg/dL (7.8-10.44); Carbon Dioxide 30 mmol/L (23-31); Chloride 100 mmol/L (98-107); Estimated GFR-MDRD Greater than 90; Glucose 166 mg/dL (83-110); Potassium 3.7 mmol/L (3.5-5.1); Sodium 136 mmol/L (136-145)
[2017-09-10] MEDS: Enoxaparin Sodium 40 MG/0.4 ML SYRINGE SC SCH (07:56)
--- NOTE | 2017-09-10 08:17 | PRG ---
DATE OF SERVICE: 09/10/2017 SUBJECTIVE: The patient is feeling better. OBJECTIVE: VITAL SIGNS: Stable, afebrile. I's and O's are 3700 in, 2560 out. ABDOMEN: Soft, nontender, nondistended. GENITOURINARY: Suprapubic tube site with some purulent discharge; however, evidence of no crepitus. Suprapubic tube is adequately secured draining concentrated yellow urine with some sediment. Tight phimosis, some pustular discharge coming from the preputial site; however, there is no gross evidence of cellulitis, induration. There is no discharge per meatus. EXTREMITIES: No cyanosis, clubbing or edema. PERTINENT LABORATORY DATA: White count 4, hemoglobin 13, platelet 258. Sugars have been running from 123-206, of note, the patient previously had blood sugar on admission of 800. History of poorly controlled diabetes, hemoglobin A1c vary from 11-13. The cultures reviewed demonstrating blood culture negative, urine culture demonstrates Klebsiella, and yeast species. He was previously on Diflucan, which has been discontinued by the wire mill operator, the patient now on medical floor. IMPRESSION AND PLAN: Mr. Solis is a 72-year-old male with history of poorly controlled diabetes. 1. Medical noncompliance. 2. Advanced age, history of neurogenic bladder/atonic bladder due to poorly controlled diabetes. Currently managed with chronic SP tube. He presented to my office for mental status changes, blood sugar is grossly elevated. I do recommend the patient to restart on antifungal, as fungal infections are increased risk for patient with poorly controlled diabetes, if we are going to treat the antimicrobial, I do recommend treatment with antifungals as well. As such, I do recommend Infectious Disease consult for a course and antibiotic regimen to be delineated. We will restart antifungal until patient is seen by Infectious Disease. He will need aggressive treatment of his diabetes, aggressive antibiotic regimen, as he is high risk for recurrence of symptomatic infection. Job Order Clerk consult would be indicated, as I do have concerns regarding patient's self-care. CANDICE
[2017-09-10] MEDS: Fluconazole In NaCl,Iso-Osm 200 MG in Premix Bag 1 BAG IVPB SCH ×2 (08:53)
[2017-09-10] MEDS ORDERED: FLU VACC TS2017-18 (>65YR) 0.5 ML SYRINGE IM ONE (09:00)
[2017-09-10] MEDS ORDERED: Prevnar 13-Val Conj/PF 0.5 ML SYRINGE IM ONE (09:00)
--- NOTE | 2017-09-10 18:13 | PDOC.PN ---
- Subjective Encounter Start Date: 09/10/17 Encounter Start Time: 07:40 Pt seen for followup for UTI. Reports feeling better. No chest pain or shortness of breath. - Objective MAR Reviewed: Yes Vital Signs & Weight: Vital Signs (12 hours) Temp Pulse Resp BP Pulse Ox 09/10/17 08:00 97.8 F 75 16 106/78 96 Weight Admit Weight 124 lb 5 oz Weight 131 lb 15.993 oz I&O: 09/09/17 09/10/17 09/11/17 06:59 06:59 06:59 Intake Total 2610 3774 1981 Output Total 300 2500 500 Balance 2310 1274 1481 Result Diagrams: 09/10/17 05:06 09/10/17 05:06 Additional Labs: Accuchecks 09/10/17 09/10/17 09/09/17 12:07 04:50 19:21 POC Glucose 320 H 206 H 330 H 09/09/17 18:04 POC Glucose 358 H Phys Exam - Physical Examination Constitutional: NAD HEENT: moist MMs Neck: supple Respiratory: clear to auscultation bilateral Cardiovascular: RRR Gastrointestinal: soft suprapubic catheter; schaphoid abdomen Neurological: moves all 4 limbs Psychiatric: normal affect Skin: no rash Dx/Plan (1) UTI (urinary tract infection) due to urinary indwelling Bae catheter Code(s): T83.511A - I/I REACT D/T INDWELLING URETHRAL CATHETER, INIT; N39.0 - URINARY TRACT INFECTION, SITE NOT SPECIFIED Status: Acute Qualifiers: Indwelling urinary catheter type: cystostomy catheter (2) DM2 (diabetes mellitus, type 2) Status: Chronic (3) Protein-calorie malnutrition, moderate Code(s): E44.0 - MODERATE PROTEIN-CALORIE MALNUTRITION Status: Chronic - Plan continue antibiotics, PT/OT, out of bed/ambulate * . Continue accuchecks, insulin sliding scale. ID consult pending. Appreciate dietitian input. Review of Systems - Review of Systems Respiratory: negative: Cough, Dry, Shortness of Breath, Hemoptysis, SOB with Excertion, Pleuritic Pain, Sputum, Wheezing Cardiovascular: negative: chest pain, palpitations, orthopnea, paroxysmal nocturnal dyspnea, edema, light headedness - Medications/Allergies Allergies/Adverse Reactions: Allergies Allergy/AdvReac Type Severity Reaction Status Date / Time No Known Allergies Allergy Verified 09/09/17 01:25 Medications: Current Medications Acetaminophen (Tylenol) 650 mg PO Q4H PRN PRN Reason: Headache/Fever or Pain Acetaminophen (Tylenol) 650 mg [place] Q4H PRN PRN Reason: Headache/Fever or Pain Dextrose/Water (Dextrose 50%) 25 gm IVP PRN PRN PRN Reason: HYPOGLYCEMIA PROTOCOL Enoxaparin Sodium (Lovenox) 40 mg SC 0900 [facility] Last Admin: 09/10/17 07:56 Dose: 40 mg Glucagon (Glucagon) 1 mg IM PRN PRN PRN Reason: HYPOGLYCEMIA PROTOCOL Meropenem 1 gm/ Sterile Water 20 mls @ 240 mls/hr SLOW IVP Q8HR [facility] Last Admin: 09/10/17 13:16 Dose: 20 mls Sodium Chloride (1/2 Normal Saline) 1,000 mls @ 125 mls/hr IV .Q8H [facility] Last Admin: 09/10/17 17:30 Dose: 1,000 mls Dextrose/Water (D5w) 1,000 mls @ 0 mls/hr IV INF PRN; As Directed PRN Reason: HYPOGLYCEMIA PROTOCOL Fluconazole/Sodium Chloride (200 mg/ Device) 100 mls @ 100 mls/hr IVPB DAILY [facility] Last Admin: 09/10/17 08:53 Dose: 100 mls Insulin Human Regular (Humulin R) 0 units SC .MODERATE SLIDING SC PRN; Protocol PRN Reason: MODERATE SLIDING SCALE Last Admin: 09/10/17 17:27 Dose: 6 unit Nicotine (Nicoderm Patch) 14 mg TD Q24HR [facility] Last Admin: 09/09/17 21:46 Dose: 14 mg Sodium Chloride (Flush - Normal Saline) 10 ml IVF Q12HR [facility] Last Admin: 09/10/17 07:57 Dose: Not Given Sodium Chloride (Flush - Normal Saline) 10 ml IVF PRN PRN PRN Reason: Saline Flush
[2017-09-10 19:46] LABS: HIV (1/2) Antibody/Antigen Non-Reactive (NonReactive); HIV 1/2 INDEX 0.16 S/CO (<1.00)
[2017-09-10 19:46] LABS: Syphilis Antibody Nonreactive (Nonreactive); Syphilis Antibody Index 0.04 S/CO (<1.00 Non-Reactive)
--- NOTE | 2017-09-10 22:05 | CON ---
DATE OF CONSULTATION: 09/10/2017 REASON FOR CONSULTATION: Confusional state, diabetes mellitus type 2 with hyperglycemia and abnormal urinalysis with suprapubic catheter. HISTORY OF PRESENT ILLNESS: A 72-year-old with history of type 2 diabetes, urinary retention secondary to neurogenic bladder with chronic suprapubic catheterization for the past 3 years, hypertension and atrial fibrillation/ flutter, paroxysmal prior ablation who apparently accidentally removed the suprapubic catheter, was seen at his urologist's office and was confused and then suprapubic catheter was removed and was sent to the emergency room for management. Initial findings, blood pressure 119/66, pulse 76 and did not appear in distress. He was alert in the emergency room. Neck was supple. Lungs with symmetric clear breath sounds. Heart exam was normal. Initial laboratory data with a sodium 135, creatinine 1.01. Transaminases and alkaline phosphatase normal, bilirubin normal, albumin 3.4. Urinalysis with 7-10 wbc's, greater than 1000 glucose, protein 100, beta hydroxybutyrate 7.95, carbon dioxide 20, initial white cell count 6.1, hemoglobin 16, platelets 303 with 69% neutrophils, 20% lymphocytes, total neutrophil count was normal at 4.3 thus far , urine cultures with Klebsiella oxytoca greater than 100,000 yeast species, 25- 50,000 colonies per mL. Two sets of blood cultures, no growth at 48 hours. We had the last imaging studies include a brain CT with some enlargement of the ventricles, but most likely due to ex vacuo phenomenon from cortical atrophy, some evidence of microvascular disease in the brain. Chest x-ray is with evidence of COPD, subtle right basilar infiltrate. Previous CT of the abdomen and pelvis from May of last year with various calcifications horseshoe shaped kidney, suprapubic catheter with somewhat thickened urinary bladder [place] , small amount of free fluid in the pelvis and stable adrenal adenoma; in 2016, he had a testicular ultrasound which showed epididymal orchitis. The patient is currently awake and alert. He denies any headaches, visual symptoms, sore throat, odynophagia, dysphagia, no dyspnea, cough or sputum production. No abdominal pain, no back pain, no joint symptoms. He has had quite a bit of weight loss over the past few months. PAST MEDICAL HISTORY: Type 2 diabetes, hypertension, atrial fibrillation/ flutter with prior ablation, osteoarthritis, dyslipidemia, neurogenic bladder with suprapubic catheter for the past 3 years, cardiomyopathy, epididymal orchitis. PAST SURGICAL HISTORY: Rotator cuff surgery, left side and suprapubic catheterization. FAMILY HISTORY: Noncontributory. SOCIAL HISTORY: He lives in between [facility]. Still smoking daily and drinks 2 beers a day. No drug use. ALLERGIES: None. MEDICATIONS: Currently Tylenol, dextrose, Lovenox, Diflucan, meropenem. PHYSICAL EXAMINATION: VITAL SIGNS: Normal. O2 sats 96%. GENERAL: Awake, in no distress. SKIN: No areas of skin breakdown. The patient has a suprapubic catheter exit site which appears normal. There is a peripheral IV access. No lymphadenopathy. HEENT: Ocular movements are conjugate. Sclerae are white. Pupils are equal, conjunctivae normal. Nasal passages patent. 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 The oral cavity is moist with no lesions, only a few remaining teeth with marked decay and gum disease. NECK: Supple. No jugular vein distention or carotid bruits, no thyromegaly. LUNGS: With symmetric air entry, only scattered faint crackles in the right side at the base. HEART: S1, S2. Maybe a soft aortic murmur. ABDOMEN: Flat, soft, not distended or tender. No ascites. No bladder distention. : Genital and testicular area do not appear abnormal. EXTREMITIES: No joint inflammatory activity. Does have evidence of osteoarthritis. He is able to move extremities on command. Pulses are 1+ in dorsalis pedis. No edema. NEUROLOGIC: He is oriented. Follows commands. LABORATORY AND X-RAY FINDINGS: White cell count now is down to 4.7, hemoglobin 13, platelets 258 with 54% neutrophils; pH 7.43, is a venous pH; pCO2 of 35 and sodium now is 134, potassium 3.1, glucose 327. Lactic acid was 1.7. ASSESSMENT: 1. Diabetes type 2 with poor control. 2. Borderline acidosis. 3. Progressive weight loss. 4. Neurogenic bladder with suprapubic catheter, abnormal urinalysis with positive urine culture. 5. Confusional state. DISCUSSION: Differential diagnosis includes confusional state associated with malnutrition with possible micronutrient deficiency and vitamin deficiency, particularly the possibility of thiamine deficiency in view of malnutrition or other cofactor deficiency. An invasive infection appears less likely in view of lack of evidence of fever or neutrophilia. He only has a few WBCs in UA an otherwise chronically catheterized bladder which is expected to have chronic colonization. At this point, I would continue with just a few more days of antimicrobial therapy after discharge planning, on oral quinolones. Switch him to oral Cipro or levofloxacin. Discontinue meropenem. The yeast is probably more of a colonizer than anything, we would not think that treatment is necessary for that finding. The mild dilatation of the ventricles may be a concern, particularly in reference to normal pressure hydrocephalus. The radiologist thinks that it is more likely that this represents an ex vacuo phenomenon; however, he does have some balance issues and has had recurrent falls in the past. We will also check HIV and RPR just in case in view of his relative lymphocytopenia, any abnormalities in the neuro examination. To make a long story short, check for cofactor deficiencies. Will need improvement diabetes mellitus control and looks like he is developing more full insulin- dependent phenotype than type 2 phenotype at this point in time with slight acidosis. Check RPR discharge on just few days of oral quinolone. The intention here is not to eradicate all colonization from the bladder sensitive since this is not going to be feasible with an indwelling catheter. [facility]
[2017-09-10] MEDS: Nicotine 14 MG PATCH TD SCH (22:43)
[2017-09-11] MEDS: Sodium Chloride 0.45% 1,000 ML IV SCH ×4 (01:37→17:28)
[2017-09-11 04:46] LABS: #Eosinphils 0.1 thou/uL (0.0-0.7); #Lymphocytes 1.7 thou/uL (1.20-3.40); #Monocytes 0.5 thou/uL (0.11-0.59); #Neutrophils 2.4 thou/uL (1.40-6.50); %Basophils 0.2 % (0.0-1.0); %Eosinophils 1.8 % (0.0-10.0); %Lymphocytes 36.8 % (21.0-51.0); %Monocytes 9.8 % (0.0-10.0); %Neutrophils 51.4 % (42.0-75.0); Hemoglobin 12.9 g/dL (14.0-18.0); Mean Corpuscular HGB CONC 35.2 g/dL (32.0-36.0); Mean Platelet Volume 6.4 fL (7.4-10.4); Platelet Count 223 thou/uL (130-400); RBC Distribution Width 12.6 % (11.5-14.5); Red Blood Cell (RBC) Count 3.58 mill/uL (4.70-6.10); White Blood Cell (WBC) Count 4.6 thou/uL (4.8-10.8)
[2017-09-11 04:58] LABS: Anion Gap 8 mmol/L (10-20); BUN (Urea Nitrogen) 6 mg/dL (8.4-25.7); Calc. Creatinine Clearance 106 mL/min (70-130); Calcium 8.2 mg/dL (7.8-10.44); Carbon Dioxide 32 mmol/L (23-31); Chloride 98 mmol/L (98-107); Estimated GFR-MDRD Greater than 90; Glucose 250 mg/dL (83-110); Potassium 3.8 mmol/L (3.5-5.1); Sodium 134 mmol/L (136-145)
[2017-09-11] MEDS: Insulin Regular 300 UNITS/3 ML VIAL SC PRN ×3 (05:11→17:28)
[2017-09-11] MEDS: Fluconazole In NaCl,Iso-Osm 200 MG in Premix Bag 1 BAG IVPB SCH ×2 (08:42)
[2017-09-11] MEDS: Enoxaparin Sodium 40 MG/0.4 ML SYRINGE SC SCH (08:42)
--- NOTE | 2017-09-11 12:06 | PRG ---
DATE OF SERVICE: 09/11/2017 INPATIENT PROGRESS NOTE SUBJECTIVE: The patient without complaints. States he is feeling well. OBJECTIVE: VITAL SIGNS: Stable, afebrile. I's and O's, urine output 4300 mL of clear dilute urine. ABDOMEN: Soft. SP tube site is clean, dry, and intact with no significant pustular discharge. GENITOURINARY: Uncircumcised phallus with a tight phimosis. Previous noted some pustular discharge at the prepuce has resolved. EXTREMITIES: No cyanosis, clubbing or edema. PERTINENT LABORATORY DATA: White count 4.6, hemoglobin 12.9, platelets 223, creatinine 0.5. Blood sugars running 322-400. Patient presented with glucose of 800 few weeks ago, history of poorly controlled diabetes, hemoglobin A1c variable from 11-13, repeat HIV is negative, syphilis negative. IMPRESSION AND PLAN: 1. Mr. Solis is a 72-year-old male with history of diabetes, poorly controlled with medical noncompliance. 2. Advanced age, deconditioned status. 3. 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 He is managed with chronic suprapubic tube. The patient has progressed in his deconditioned status, has lost a significant amount of weight. He continues to be noncompliant with diet at home. Recommend patient has a close followup with his benefit authorizer, Dr. Clarke. From urologic perspective, patient may be discharged. I did ask for case management, agree with long term placement given his deconditioned status. Disposition is pending. From a urologic perspective, he may be discharged to long term or home if medically stable. His routine follow up with me for interval suprapubic tube exchange. Appreciate Dr. Ortega's consult, regarding antibiotic , antifungal regimen. [facility]
--- NOTE | 2017-09-11 13:44 | PDOC.PN ---
- Subjective Encounter Start Date: 09/11/17 Encounter Start Time: 09:40 Pt seen for followup re: UTI. No complaints today. - Objective Vital Signs & Weight: Vital Signs (12 hours) Temp Pulse Resp BP Pulse Ox 09/11/17 12:07 98.6 F 83 16 110/69 94 L 09/11/17 08:00 97.7 F 79 16 09/11/17 07:23 97.7 F 79 16 135/70 94 L Weight Admit Weight 124 lb 5 oz Weight 131 lb 15.993 oz I&O: 09/10/17 09/11/17 09/12/17 06:59 06:59 06:59 Intake Total 3774 4288 480 Output Total 2500 4300 Balance 1274 -12 480 Result Diagrams: 09/11/17 03:46 09/11/17 03:46 Additional Labs: Accuchecks 09/11/17 09/10/17 09/10/17 04:53 19:15 16:54 POC Glucose 322 H 274 H 272 H Phys Exam - Physical Examination Constitutional: NAD HEENT: moist MMs Neck: supple Respiratory: clear to auscultation bilateral Cardiovascular: RRR suprapubic catheter Neurological: moves all 4 limbs Psychiatric: normal affect Dx/Plan (1) UTI (urinary tract infection) due to urinary indwelling Bae catheter Code(s): T83.511A - I/I REACT D/T INDWELLING URETHRAL CATHETER, INIT; N39.0 - URINARY TRACT INFECTION, SITE NOT SPECIFIED Status: Acute Qualifiers: Indwelling urinary catheter type: cystostomy catheter (2) DM2 (diabetes mellitus, type 2) Status: Chronic (3) Protein-calorie malnutrition, moderate Code(s): E44.0 - MODERATE PROTEIN-CALORIE MALNUTRITION Status: Chronic - Plan continue antibiotics, PT/OT, out of bed/ambulate * . * Appreciate ID service input. * Start levemir 50 units BID (lower dose than home dose, will titrate up if needed). Review of Systems - Review of Systems Respiratory: negative: Cough, Dry, Shortness of Breath, Hemoptysis, SOB with Excertion, Pleuritic Pain, Sputum, Wheezing Cardiovascular: negative: chest pain, palpitations, orthopnea, paroxysmal nocturnal dyspnea, edema, light headedness - Medications/Allergies Allergies/Adverse Reactions: Allergies Allergy/AdvReac Type Severity Reaction Status Date / Time No Known Allergies Allergy Verified 09/09/17 01:25 Medications: Current Medications Acetaminophen (Tylenol) 650 mg PO Q4H PRN PRN Reason: Headache/Fever or Pain Acetaminophen (Tylenol) 650 mg [place] Q4H PRN PRN Reason: Headache/Fever or Pain Dextrose/Water (Dextrose 50%) 25 gm IVP PRN PRN PRN Reason: HYPOGLYCEMIA PROTOCOL Enoxaparin Sodium (Lovenox) 40 mg SC 0900 [facility] Last Admin: 09/11/17 08:42 Dose: 40 mg Glucagon (Glucagon) 1 mg IM PRN PRN PRN Reason: HYPOGLYCEMIA PROTOCOL Sodium Chloride (1/2 Normal Saline) 1,000 mls @ 125 mls/hr IV .Q8H [facility] Last Admin: 09/11/17 08:42 Dose: 1,000 mls Dextrose/Water (D5w) 1,000 mls @ 0 mls/hr IV INF PRN; As Directed PRN Reason: HYPOGLYCEMIA PROTOCOL Fluconazole/Sodium Chloride (200 mg/ Device) 100 mls @ 100 mls/hr IVPB DAILY [facility] Last Admin: 09/11/17 08:42 Dose: 100 mls Insulin Human Regular (Humulin R) 0 units SC .MODERATE SLIDING SC PRN; Protocol PRN Reason: MODERATE SLIDING SCALE Last Admin: 09/11/17 11:56 Dose: 6 unit Levofloxacin (Levaquin) 500 mg PO 0600 [facility] Last Admin: 09/11/17 05:11 Dose: 500 mg Nicotine (Nicoderm Patch) 14 mg TD Q24HR [facility] Last Admin: 09/10/17 22:43 Dose: 14 mg Sodium Chloride (Flush - Normal Saline) 10 ml IVF Q12HR [facility] Last Admin: 09/11/17 08:42 Dose: Not Given Sodium Chloride (Flush - Normal Saline) 10 ml IVF PRN PRN PRN Reason: Saline Flush
[2017-09-11] MEDS ORDERED: Insulin Detemir 100 UNITS/ML 50 UNITS in Pre-Filled Syringe 1 EACH SC SCH (21:00)
[2017-09-11] MEDS: Nicotine 14 MG PATCH TD SCH (21:14)
[2017-09-12 04:35] LABS: Anion Gap 8 mmol/L (10-20); BUN (Urea Nitrogen) 8 mg/dL (8.4-25.7); Calc. Creatinine Clearance 122 mL/min (70-130); Calcium 8.4 mg/dL (7.8-10.44); Carbon Dioxide 34 mmol/L (23-31); Chloride 102 mmol/L (98-107); Estimated GFR-MDRD Greater than 90; Glucose 65 mg/dL (83-110); Potassium 3.5 mmol/L (3.5-5.1); Sodium 140 mmol/L (136-145)
[2017-09-12] MEDS: Sodium Chloride 0.45% 1,000 ML IV SCH ×3 (05:32→23:47)
[2017-09-12] MEDS: Enoxaparin Sodium 40 MG/0.4 ML SYRINGE SC SCH (07:54)
[2017-09-12] MEDS: Tamsulosin HCl 0.4 MG CAP PO SCH (07:54)
[2017-09-12] MEDS: Aspirin 81 mg Enteric Coated Tablet PO SCH (07:54)
[2017-09-12] MEDS: Fluconazole In NaCl,Iso-Osm 200 MG in Premix Bag 1 BAG IVPB SCH ×2 (07:54)
[2017-09-12] MEDS ORDERED: CRANBERRY FRUIT EXTRACT PO SCH (09:00)
[2017-09-12] MEDS ORDERED: VIT C PO SCH (09:00)
--- NOTE | 2017-09-12 12:07 | PRG ---
DATE OF SERVICE: 09/12/2017 PROGRESS NOTE SUBJECTIVE: The patient is resting comfortably; denies nausea, vomiting, fever. OBJECTIVE: VITAL SIGNS: Stable, afebrile. I's and O's 5160 in and 5300 out. Urine output is dilute clear. ABDOMEN: Soft. Suprapubic tube site is clean, dry, and intact. GENITOURINARY: Uncircumcised, moderate phimosis, no significant pustular discharge, no scrotal edema or tenderness is appreciated. PERTINENT LABORATORY DATA: No new labs. His CBC is stable. Blood sugars variable from 486-233. IMPRESSION AND PLAN: 1. Mr. Solis is a 72-year-old male with history of poorly controlled diabetes , known history of medical noncompliance. 2. Advanced age, progressive deconditioned status, significant weight loss. 3. He continues to have very poor diet at home. 4. 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 The patient has demonstrated on multiple occasions regarding his medical noncompliance. He has presented recurrently with significant elevated blood sugars. I did initiate a case management consult for shelter facility which he is refusing. I encouraged the patient to reconsider as he is high risk for recurrent admission/ recurrence of diabetic complications. The patient avoiding eye contact, I would encourage case management to rediscuss shelter facility as he states that he will reconsider. He has follow up with me for routine suprapubic tube exchange. He may be discharged with the suprapubic tube for routine followup when he is medically cleared. Disposition is pending. Antibiotic regimen per Infectious Disease. Please let me know when patient is ready for discharge as his suprapubic tube needs to be transitioned to a leg bag. 5. Recommend Hep-Lock IV as he is taking adequate orals. [facility]
--- NOTE | 2017-09-12 12:56 | PDOC.PN ---
- Subjective Encounter Start Date: 09/12/17 Encounter Start Time: 07:40 Pt seen for followup re: hypoglycemia. Denies chest pain or shortness of breath. - Objective MAR Reviewed: Yes Vital Signs & Weight: Vital Signs (12 hours) Temp Pulse Resp BP Pulse Ox 09/12/17 08:00 98.4 F 63 16 09/12/17 07:16 98.4 F 63 16 99/62 94 L Weight Admit Weight 124 lb 5 oz Weight 131 lb 15.993 oz I&O: 09/11/17 09/12/17 09/13/17 06:59 06:59 06:59 Intake Total 4288 5160 240 Output Total 4300 5300 Balance -12 -140 240 Result Diagrams: 09/11/17 03:46 09/12/17 03:56 Additional Labs: Accuchecks 09/12/17 09/12/17 09/11/17 11:35 05:12 20:14 POC Glucose 107 77 233 H 09/11/17 16:41 POC Glucose 256 H Phys Exam - Physical Examination Constitutional: NAD HEENT: moist MMs Neck: supple Respiratory: clear to auscultation bilateral Cardiovascular: RRR suprapubic catheter Neurological: moves all 4 limbs Psychiatric: normal affect Dx/Plan (1) Hypoglycemia Code(s): E16.2 - HYPOGLYCEMIA, UNSPECIFIED Status: Acute (2) UTI (urinary tract infection) due to urinary indwelling Bae catheter Code(s): T83.511A - I/I REACT D/T INDWELLING URETHRAL CATHETER, INIT; N39.0 - URINARY TRACT INFECTION, SITE NOT SPECIFIED Status: Acute Qualifiers: Indwelling urinary catheter type: cystostomy catheter (3) DM2 (diabetes mellitus, type 2) Status: Chronic (4) Protein-calorie malnutrition, moderate Code(s): E44.0 - MODERATE PROTEIN-CALORIE MALNUTRITION Status: Chronic - Plan continue antibiotics, PT/OT, out of bed/ambulate * . Decrease levemir dose to 25 units BID. Discontinue fluconazole, continue levofloxacin. Needs discharge planning. Review of Systems - Review of Systems Respiratory: negative: Cough, Dry, Shortness of Breath, Hemoptysis, SOB with Excertion, Pleuritic Pain, Sputum, Wheezing Cardiovascular: negative: chest pain, palpitations, orthopnea, paroxysmal nocturnal dyspnea, edema, light headedness - Medications/Allergies Allergies/Adverse Reactions: Allergies Allergy/AdvReac Type Severity Reaction Status Date / Time No Known Allergies Allergy Verified 09/09/17 01:25 Medications: Current Medications Acetaminophen (Tylenol) 650 mg PO Q4H PRN PRN Reason: Headache/Fever or Pain Acetaminophen (Tylenol) 650 mg [place] Q4H PRN PRN Reason: Headache/Fever or Pain Aspirin (Ecotrin) 81 mg PO DAILY [facility] Last Admin: 09/12/17 07:54 Dose: 81 mg Cholecalciferol (Vitamin D3) 1,000 units PO DAILY [facility] Last Admin: 09/12/17 07:54 Dose: 1,000 units Dextrose/Water (Dextrose 50%) 25 gm IVP PRN PRN PRN Reason: HYPOGLYCEMIA PROTOCOL Enoxaparin Sodium (Lovenox) 40 mg SC 0900 [facility] Last Admin: 09/12/17 07:54 Dose: 40 mg Glucagon (Glucagon) 1 mg IM PRN PRN PRN Reason: HYPOGLYCEMIA PROTOCOL Sodium Chloride (1/2 Normal Saline) 1,000 mls @ 125 mls/hr IV .Q8H [facility] Last Admin: 09/12/17 08:02 Dose: 1,000 mls Dextrose/Water (D5w) 1,000 mls @ 0 mls/hr IV INF PRN; As Directed PRN Reason: HYPOGLYCEMIA PROTOCOL Fluconazole/Sodium Chloride (200 mg/ Device) 100 mls @ 100 mls/hr IVPB DAILY [facility] Last Admin: 09/12/17 07:54 Dose: 100 mls Insulin Detemir 20 units/ (Miscellaneous Medication) 0.2 mls @ 0 mls/hr SC BID [facility] Insulin Human Regular (Humulin R) 0 units SC .MODERATE SLIDING SC PRN; Protocol PRN Reason: MODERATE SLIDING SCALE Last Admin: 09/11/17 17:28 Dose: 6 unit Levofloxacin (Levaquin) 500 mg PO 0600 [facility] Last Admin: 09/12/17 05:31 Dose: 500 mg Nicotine (Nicoderm Patch) 14 mg TD Q24HR [facility] Last Admin: 09/11/17 21:14 Dose: 14 mg Sodium Chloride (Flush - Normal Saline) 10 ml IVF Q12HR [facility] Last Admin: 09/12/17 07:55 Dose: Not Given Sodium Chloride (Flush - Normal Saline) 10 ml IVF PRN PRN PRN Reason: Saline Flush Tamsulosin HCl (Flomax) 0.4 mg PO DAILY [facility] Last Admin: 09/12/17 07:54 Dose: 0.4 mg
[2017-09-12] MEDS: Insulin Detemir 100 UNITS/ML 20 UNITS in Pre-Filled Syringe 1 EACH SC SCH (20:29)
[2017-09-12] MEDS: Nicotine 14 MG PATCH TD SCH (23:46)
[2017-09-13] MEDS: Sodium Chloride 0.45% 1,000 ML IV SCH ×2 (01:15→08:58)
[2017-09-13] MEDS: Insulin Regular 300 UNITS/3 ML VIAL SC PRN (05:23)
[2017-09-13 05:24] LABS: Anion Gap 9 mmol/L (10-20); BUN (Urea Nitrogen) 10 mg/dL (8.4-25.7); Calc. Creatinine Clearance 106 mL/min (70-130); Calcium 8.3 mg/dL (7.8-10.44); Carbon Dioxide 31 mmol/L (23-31); Chloride 100 mmol/L (98-107); Estimated GFR-MDRD Greater than 90; Glucose 187 mg/dL (83-110); Potassium 3.8 mmol/L (3.5-5.1); Sodium 136 mmol/L (136-145)
--- NOTE | 2017-09-13 06:44 | PRG ---
DATE OF SERVICE: 09/13/2017 SUBJECTIVE: The patient is resting comfortably. OBJECTIVE: VITAL SIGNS: Stable, afebrile. GENITOURINARY: Urine output is clear. Suprapubic tube site is clean, dry, and intact. SP tube was transitioned to leg bag with extension tubing StatLock x2. IMPRESSION AND PLAN: Mr. Solis is a 72-year-old male, Estonian speaking with history of med ical noncompliance, poorly controlled diabetes. 1. Advanced age, deconditioned status. 2. History of poor diet. 3. History of neurogenic bladder with atonic bladder. His suprapubic tube was replaced as he pulled it out due to encephalopathy, early diabetic ketoacidosis. The patient may be discharged home if me dically stable. I discussed with the patient that he should be transferred to senior living facili , which he adamantly declines. Recommend antibiotic regimen per Infectious Disease. He has electe d follow up with me for elective suprapubic tube exchange.
[2017-09-13] MEDS: Aspirin 81 mg Enteric Coated Tablet PO SCH (08:05)
[2017-09-13] MEDS: Tamsulosin HCl 0.4 MG CAP PO SCH (08:05)
[2017-09-13] MEDS: Enoxaparin Sodium 40 MG/0.4 ML SYRINGE SC SCH (08:06)
[2017-09-13] MEDS: Insulin Detemir 100 UNITS/ML 20 UNITS in Pre-Filled Syringe 1 EACH SC SCH (08:07)
[2017-09-13] MEDS: Fluconazole In NaCl,Iso-Osm 200 MG in Premix Bag 1 BAG IVPB SCH ×2 (08:58)
[2017-09-13 12:10] VITALS: BP 138/75; TEMP 97.2
--- NOTE | 2017-09-13 13:32 | DIS ---
DATE OF ADMISSION: 09/08/2017 DATE OF DISCHARGE: 09/13/2017 PRIMARY CARE PROVIDER: Lara Wolf NP. DISCHARGE DIAGNOSES: 1. Urinary tract infection with Klebsiella oxytoca and yeast species. 2. Diabetic ketoacidosis. 3. Hypoglycemic episodes. CONDITION OF PATIENT ON THE DAY OF DISCHARGE: Stable. I assess Mr. Solis on the day of discharge. He denies any chest pain or shortness of breath. Vital signs are stable. S1 and S2 are heard, regu lar. Lungs are clear to auscultation bilaterally. DISCHARGE MEDICATIONS: His Levemir dose was decreased to 20 units 2 times a day. He has been starte d on Levaquin 500 mg daily, 5 more days. He has also been started on Nicoderm 14 mg daily patch. He is continued on aspirin 81 mg daily, vitamin D3 1000 units daily, cranberry fruit extract 1 capsule daily, and Flomax 0.4 mg daily. HOSPITAL COURSE: Mr. Solis is a pleasant 72-year-old gentleman who was admitted to [facility] for diabetic ketoacidosis as well as urinary tract infection. He improved after be ing treated on the diabetic ketoacidosis protocol. He did have hypoglycemic episodes during this hos pitalization and his Levemir dose was decreased. He is advised to check his Accu-Cheks 3 times a day and show the readings to his primary care provider, so that his insulin dose can be adjusted. He was also found to have a urinary tract infection. He was seen by Dr. Ortega for Infectious Disease s Service. He is advised few days of fluoroquinolones. He was initially started on fluconazole, whi ch was subsequently discontinued. It was felt that the yeast species were colonizers. He had his anders prapubic catheter changed prior to this admission, through his urologist's office. He had a normal vitamin B12 level during this hospitalization. He also had nonreactive syphilis sero logy and nonreactive HIV serology. I had a lengthy discussion with the patient regarding admission to longterm facility. He did not wish to go to a longterm facility. I also discussed with him the possibility of home heal th with home nursing, OT and PT. He is making an informed decision not to have home services as well as not to go to longterm facility. Many thanks for allowing me to participate in your patient's care. Please feel free to contact me wi th any questions or concerns. CONSULTATIONS DURING THIS HOSPITALIZATION: Pulmonology, Dr. Painting; Infectious Diseases, Dr. Ortega, eliana nd Urology, Dr. Bose. DISCHARGE DESTINATION: Home. TOTAL AMOUNT OF TIME SPENT COORDINATING THIS DISCHARGE: 33 minutes.
== END 2017-09-13 12:21 | disposition home or self-care (01) | DRG 637 ==
LOC: ERS 15:32 → IMCU/EMU 23:05 → T4-A 09-09 17:08
PROVIDERS: ADMIT Internal Medicine; ATTEND Internal Medicine
DX: E11.10 Type 2 diabetes mellitus with ketoacidosis without coma (principal); G93.40 Encephalopathy, unspecified; R64 Cachexia; E44.0 Moderate protein-calorie malnutrition; I42.9 Cardiomyopathy, unspecified; N31.9 Neuromuscular dysfunction of bladder, unspecified; N39.0 Urinary tract infection, site not specified; T83.511A Infection and inflammatory reaction due to indwelling urethral catheter, initial encounter; B37.49 Other urogenital candidiasis; E87.1 Hypo-osmolality and hyponatremia; Z68.1 Body mass index [BMI] 19.9 or less, adult; R33.9 Retention of urine, unspecified; I45.10 Unspecified right bundle-branch block; E78.5 Hyperlipidemia, unspecified; I10 Essential (primary) hypertension; M19.90 Unspecified osteoarthritis, unspecified site; F17.210 Nicotine dependence, cigarettes, uncomplicated; Z91.14 Patient's other noncompliance with medication regimen; B96.1 Klebsiella pneumoniae [K. pneumoniae] as the cause of diseases classified elsewhere; E11.649 Type 2 diabetes mellitus with hypoglycemia without coma
CPT/HCPCS: 36415; 36416; 51710; 70450; 71045; 80048; 80053; 81003; 81015; 82010; 82180; 82330; 82553; 82607; 82803; 83605; 84425; 84484; 85025; 86780; 87040; 87077; 87086; 87186; 87389; 90471; 90670; 90682; 96361; 96365; 96366; 96368; 96375; 99215; 99406; A4216; G0008; G0009; G0463; J1450; J1650; J1815; J1956; J2185; J7050; Q2036

== ENCOUNTER 2017-09-27 12:23 | Inpatient (IN) | payer MEDICARE, OTHER ==
[2017-09-27 13:23] LABS: #Eosinphils 0.1 thou/uL (0.0-0.7); #Lymphocytes 1.4 thou/uL (1.20-3.40); #Monocytes 0.3 thou/uL (0.11-0.59); #Neutrophils 3.6 thou/uL (1.40-6.50); %Basophils 0.5 % (0.0-1.0); %Eosinophils 0.9 % (0.0-10.0); %Lymphocytes 26.6 % (21.0-51.0); %Monocytes 5.6 % (0.0-10.0); %Neutrophils 66.4 % (42.0-75.0); Hemoglobin 16.2 g/dL (14.0-18.0); Mean Corpuscular Hemoglobin 35.6 pg (27.0-31.0); Mean Platelet Volume 6.9 fL (7.4-10.4); Platelet Count 272 thou/uL (130-400); Red Blood Cell (RBC) Count 4.56 mill/uL (4.70-6.10); White Blood Cell (WBC) Count 5.4 thou/uL (4.8-10.8)
[2017-09-27 13:40] LABS: MDiff Complete? YES; Macrocytosis SLIGHT = 6-15 cells (100X) (0-5/hpf); PLT Morphology Comment Appears Adequate
[2017-09-27 13:53] LABS: ALT (SGPT) 14 U/L (8-55); AST (SGOT) 14 U/L (5-34); Albumin 4.1 g/dL (3.4-4.8); Alkaline Phosphatase 133 U/L (40-150); Anion Gap 16 mmol/L (10-20); BUN (Urea Nitrogen) 17 mg/dL (8.4-25.7); Bilirubin, Total 0.8 mg/dL (0.2-1.2); Calc. Creatinine Clearance 0 mL/min (70-130); Calcium 10.3 mg/dL (7.8-10.44); Carbon Dioxide 29 mmol/L (23-31); Chloride 95 mmol/L (98-107); Estimated GFR-MDRD 88; Globulin 3.8 g/dL (2.4-3.5); Potassium 5.1 mmol/L (3.5-5.1); Protein, Total 7.9 g/dL (5.8-8.1); Sodium 135 mmol/L (136-145)
[2017-09-27 13:59] LABS: Glucose 650 mg/dL (83-110)
--- NOTE | 2017-09-27 14:14 | RAD ---
PORTABLE CHEST 1 VIEW: Date: 09/27/17 Time: 1331 hours HISTORY: Shortness of breath, nausea, and vomiting. FINDINGS: Comparison made with exam of 09/08/17. The heart size is normal. There are mild patchy infiltrates in the lung bases. No pneumothoraces or p leural effusions are seen. There are postop changes in the left shoulder. Old right clavicular fractu re is again seen. IMPRESSION: Findings are suspicious for pneumonia. POS: [facility]
[2017-09-27] MEDS ORDERED: Insulin Regular 300 UNITS/3 ML VIAL ONE (14:36)
[2017-09-27] MEDS ORDERED: Dextrose 50% Abboject 50 ML SYRINGE SLOW IVP PRN (15:42)
[2017-09-27] MEDS ORDERED: Dextrose 5% in Water 1,000 ML IV PRN (15:42)
[2017-09-27] MEDS ORDERED: Acetaminophen 325 MG TAB PO PRN (15:44)
[2017-09-27] MEDS ORDERED: Ondansetron HCl/PF 4 MG/2 ML Vial IVP PRN (15:44)
[2017-09-27] MEDS ORDERED: HYDROcodone/Acetaminophen 5/325 mg Tablet PO PRN (15:44)
[2017-09-27] MEDS ORDERED: Milk Of Magnesia 30 ML UDCUP PO PRN (15:44)
[2017-09-27] MEDS ORDERED: Piperacillin/Tazobactam 3.375 GM in Sodium Chloride 0.9% 100 ML IVPB SCH (16:15)
[2017-09-27 17:05] LABS: Bilirubin Negative (Negative); Blood, Urine Moderate (Negative); Clarity TURBID (Clear); Glucose, Urine (Dipstick) 250 mg/dL (Negative); Leukocyte Large (Negative); Nitrite Positive (Negative); Protein, Urine (Dipstick) 100 mg/dL (Neg-Trace); Specific Gravity, Urine 1.031 (1.002-1.036); Urobilinogen 0.2 mg/dL (0.2-1.0)
[2017-09-27 17:09] LABS: Bacteria/HPF 4+ HPF (None Seen)
[2017-09-27 17:10] LABS: Pathc Cast-AUWi Flag 1459.35 (0-2.49)
[2017-09-27 17:21] LABS: Hyaline Casts/LPF NONE SEEN LPF (0-3 Hyaline); Other Casts/LPF None Seen LPF (0-3 Hyaline); Yeast-All Forms 1+ HPF (None Seen)
--- NOTE | 2017-09-27 17:25 | CON ---
DATE OF SERVICE: 09/27/2017. REASON FOR CONSULT: Malfunctioning of suprapubic tube. HISTORY OF PRESENT ILLNESS: Mr. Solis is a 72-year-old male, primary care physician Ms. Wolf, [place] speaking with history of poorly controlled diabetes, noncompliant. The patient initially presented to my office back in . He has failed clean intermittent catheterization due to atonic neurogenic bladder, has been subsequently transitioned to suprapubic tube placed by Interventional Radiology, 08/2016. Over the last few months, the patient has deconditioned significantly. He has significant weight loss, continues to have poorly controlled diabetes with A1c running in 13.8. He has left AMA on multiple admissions. I last saw the patient in-house, informed him that he is unable to take care of himself, informed the patient to be transferred to rehabilitation, which he declined. He came into my office this 09/24/2017, as a walk-in as his suprapubic tube was malfunctioning. Preceding this, the patient has pulled out his Bae catheter, which he does not recall the event. He has progressed significantly in his deconditioned status. He continues to have very poor diet. His sugars have been out of control. He currently presented to the ER as he states the catheter stopped draining. I have recently changed his catheter. His pre-existing Bae catheter was 24-[place] caliber, as he pulled the catheter out, we have been upsizing his suprapubic tube from 16 [place]. I have recently placed an 18- [place] two-way Bae, irrigated to clear. His presenting blood sugar is 650, creatinine of 0.8. Per ER, urine has been leaking around the catheter. On physical exam, a suprapubic tube is in place. I have removed the pre- existing catheter, a 22-[place] 30 mL was replaced uneventfully with significant pyocystis. 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 Endocrinology, Dr. Clarke. PAST SURGICAL HISTORY: 1. Left rotator cuff. 2. Cystoscopy demonstrating mild BPH, large capacity bladder, 11/2015. 3. Urodynamics demonstrated large capacity bladder, normal compliance with delayed sensation. 4. Suprapubic tube by IR, 09/04/2016. ALLERGIES: No known drug allergies. PHYSICAL EXAMINATION: GENERAL: The patient is in poor health, deconditioned status. He is oriented x2, provides his own subjective history, does not recall when his suprapubic tube stopped draining. HEENT: Grossly unremarkable. Poor dentition. Cachectic. ABDOMEN: Soft, scaphoid. SP tube site with no significant pustular discharge. He was formally prepped and draped and a new 22-[place] 30 mL suprapubic tube replaced uneventfully. There is significant pustular drainage consistent with pyocystitis. I did irrigate this gently with no resistance. EXTREMITIES: No cyanosis, clubbing, or edema. GENITOURINARY: Phimosis, unable to retract foreskin completely. No crepitus or induration noted. PERTINENT LABORATORY AND IMAGIN. Renal ultrasound, 04/2017. History of horseshoe kidney, mild dilation of the right collecting system, left extrarenal pelvis. 2. 05/2017 CT demonstrates horseshoe kidney, mild pelviectasis, contrast is seen all the way down to the bladder with no evidence of hydronephrosis, no renal bladder calculi appreciated. 3. Creatinine 0.8, blood sugar currently is 650. White count of 5, hemoglobin 16, platelets 272. Urinalysis was yet to be obtained. 4. Syphilis and HIV is nonreactive. IMPRESSION: 1. Mr. Solis is a 72-year-old male with history of poorly controlled diabetes. 2. Deconditioned status. 3. Cachectic. 4. Medical noncompliance. 5. Urologic issues of atonic neurogenic bladder, on chronic SP tube. PLAN: As previous, I informed the patient that he is too ill and fragile to be living in a private residence. On this admission, he is open to long term rehab facility, which will be best for the patient as he is unable to take care of himself. SP tube was exchanged in the ER uneventfully. Recommend panculture. Previously was seen by Infectious Disease, Dr. Ortega. Repeat consultation would be indicated if clinically warranted. I do expect bacteriuria, this does need to be treated as there is significant pyocystitis. May need antifungal as antimicrobial given his poorly controlled diabetes. [facility]
--- NOTE | 2017-09-27 18:47 | HP ---
PRIMARY CARE PHYSICIAN: Lara Wolf NP CHIEF COMPLAINT: "My blood sugar was high." HISTORY OF PRESENT ILLNESS: A 72-year-old male with a past medical history of chronic suprapubic catheter who presented to the emergency room after he reportedly checked his blood sugar and found it to be about 900. He reports no complaints. He denies cough, shortness of breath or sputum production. He has had no hematuria, urgency, frequency, abdominal pain. However, he reports that he has been having some difficulty in using his suprapubic catheter. Of note, he has been admitted recently in the hospital, the last one being a few weeks ago where possible rehab versus retirement unit discussed with the patient , but he refused, but states that this time, his is unable to further take care of him at home, so he would be willing to discuss rehabilitation options. At the emergency room, his CBC was largely unremarkable. Serum chemistry showed blood glucose greater than 550 with lactic acid of 2.4, but he had no anion gap. Urinalysis revealed markedly abnormal urine with blood, nitrite, leukocyte esterase, increased WBC and greater than 50 WBCs and bacteria. He had a chest x-ray as well which was abnormal showing bilateral lower lobe infiltrates, but on review this has been chronic and he has no respiratory symptoms. PAST MEDICAL HISTORY: Suprapubic catheter, diabetes mellitus (? type). PAST SURGICAL HISTORY: None. FAMILY HISTORY: Reviewed, not contributory. SOCIAL HISTORY: Admits to smoking cigarettes, but denies alcohol or illicit drug use. ALLERGIES: None. REVIEW OF SYSTEMS: Constitutional: Denies weight loss, fevers or chills. HEENT: Negative. Skin : Negative. Cardiovascular: Denies chest pain, shortness of breath, palpitation, lower extremity edema. Respiratory: Denies cough, shortness of breath or sputum production. Gastrointestinal: Per HPI. Genitourinary: Negative. Musculoskeletal: Negative. Psychiatric: Negative. Neurologic: Negative. Immunologic/Allergy: Negative. Hematologic: Negative. OTHER PAST MEDICAL HISTORY: Urinary retention, hypertension, dyslipidemia, right bundle block branch, osteoarthritis, atrial fibrillation/flutter, status post ablation, cardiomyopathy, phimosis and poorly controlled diabetes. PHYSICAL EXAMINATION: GENERAL: Alert and well oriented, not in acute distress. HEENT: Normocephalic, atraumatic. Not pale, anicteric. Moist mucous membranes. PERRLA, EOMI. NECK: Supple, full range of movement. RESPIRATORY: Clear to auscultation bilaterally. No wheezes or rales. CARDIOVASCULAR: S1 and S2. No murmurs, rubs or gallops. ABDOMEN: Soft, tender. Bowel sounds positive. Suprapubic catheter in place. No hepatosplenomegaly. NEUROLOGIC: Alert and oriented x3. No focal deficits. MUSCULOSKELETAL: Strength 5/5 in all extremities, moving down spontaneously. LYMPHATICS: No lymphadenopathy. PSYCHIATRIC: Normal mood and affect. SKIN: No rashes or lesions. LABORATORY DATA: As stated in HPI. IMAGING: As stated in HPI. ASSESSMENT: 1. Complicated urinary tract infection. 2. Hyperglycemia. 3. Diabetes mellitus with last A1c in 07/2017. 4. Abnormal chest x-ray. PLAN: 1. For his complicated UTI, his previous cultures grew Klebsiella oxytoca, which was sensitive to Zosyn. He has been started on Zosyn. We will follow up on cultures and sensitivities of his current urinalysis. Also we will get Urology consult for possibly changing of his suprapubic catheter. 2. Hyperglycemia. We will give him a fluid bolus and place him on maintenance fluids. His blood sugars responded to 10 units of regular insulin in the emergency room. We will restart him on his home regimen of insulin detemir 20 units b.i.d. with 7 units of NovoLog a.c. with meals. We will also institute sliding scale insulin, diabetic diet and hypoglycemia protocol. For his abnormal chest x-ray, this seems to be a chronic issue and he has no respiratory symptoms, so we will not treat SOCIAL ISSUES: The patient has required some extra level of assistance at home. Rehab discussed in the past. We will get child support case officer consult and also rehab screening to determine his disposition. For other medical conditions, we will continue his home medications and monitor his vital signs closely. CODE STATUS: FULL CODE. MTDD
[2017-09-27 18:58] VITALS: BMI 24.7
[2017-09-27] MEDS: Sodium Chloride 0.9% 1,000 ML IV SCH ×2 (19:00→20:00)
[2017-09-27] MEDS: HumaLOG 300 UNITS/3 ML VIAL SC PRN (20:12)
[2017-09-27] MEDS: Heparin 5,000 UNITS/ML VIAL SC SCH (20:12)
[2017-09-27] MEDS: Docusate 100 MG CAP PO SCH (20:13)
[2017-09-27 20:31] LABS: Lactic Acid 1.6 mmol/L (0.5-2.2)
[2017-09-27] MEDS: Insulin Detemir 100 UNITS/ML 20 UNITS in Pre-Filled Syringe 1 EACH SC SCH ×2 (21:00→22:23)
[2017-09-27] MEDS: Piperacillin/Tazobactam 3.375 GM in Sodium Chloride 0.9% 100 ML IVPB SCH (23:00)
[2017-09-28] MEDS: Piperacillin/Tazobactam 3.375 GM in Sodium Chloride 0.9% 100 ML IVPB SCH ×4 (01:17→18:05)
[2017-09-28] MEDS: Sodium Chloride 0.9% 1,000 ML IV SCH ×3 (01:18→18:39)
[2017-09-28 05:46] LABS: #Eosinphils 0.1 thou/uL (0.0-0.7); #Lymphocytes 1.4 thou/uL (1.20-3.40); #Monocytes 0.3 thou/uL (0.11-0.59); #Neutrophils 3.6 thou/uL (1.40-6.50); %Basophils 0.1 % (0.0-1.0); %Eosinophils 2.3 % (0.0-10.0); %Lymphocytes 25.9 % (21.0-51.0); %Monocytes 5.2 % (0.0-10.0); %Neutrophils 66.5 % (42.0-75.0); Anion Gap 10 mmol/L (10-20); BUN (Urea Nitrogen) 20 mg/dL (8.4-25.7); Calc. Creatinine Clearance 94 mL/min (70-130); Calcium 8.9 mg/dL (7.8-10.44); Carbon Dioxide 30 mmol/L (23-31); Chloride 101 mmol/L (98-107); Estimated GFR-MDRD Greater than 90; Glucose 215 mg/dL (83-110); Mean Corpuscular HGB CONC 34.5 g/dL (32.0-36.0); Mean Corpuscular Hemoglobin 35.6 pg (27.0-31.0); Mean Platelet Volume 6.6 fL (7.4-10.4); Platelet Count 270 thou/uL (130-400); Potassium 4.3 mmol/L (3.5-5.1); RBC Distribution Width 12.7 % (11.5-14.5); Red Blood Cell (RBC) Count 3.65 mill/uL (4.70-6.10); Sodium 137 mmol/L (136-145); White Blood Cell (WBC) Count 5.4 thou/uL (4.8-10.8)
--- NOTE | 2017-09-28 08:33 | PRG ---
DATE OF SERVICE: 09/28/2017 SUBJECTIVE: The patient is resting comfortably. OBJECTIVE: VITAL SIGNS: Stable. I's and O's are 1700 in, urine output 1300, clear. ABDOMEN: Soft, mild purulent discharge at the SP tube site. EXTREMITIES: No cyanosis, clubbing or edema. GENITOURINARY: Phimosis, minimal discharge at the meatus. PERTINENT LABORATORY DATA: White count 5, hemoglobin 13, platelet 270, elevated lactic acid on admission of 4.3, blood sugar on admission over 600 to 500. Renal function is stable at 0.69. Urine culture and blood culture is pending. IMPRESSION AND PLAN: Mr. Solis is a 72-year-old male with history of medical noncompliance. 1. History of poorly controlled diabetes, hemoglobin A1c running around 13 on average. 2. Recurrent ER presentation/ admission due to noncompliance. 3. Inability for self care. 4. History of neurogenic bladder secondary to poorly controlled diabetes, diabetic cystopathy on chronic SP tube. The patient over the last few months has progressed significantly in his deconditioned status as well as his ability to care for himself. He has a who is elderly, he is clearly not compliant with his diet as well as his medications as he presented with multiple ER presentation with elevated blood sugars. Moreover, he presented on numerous occasions as a walk-in to my appointments; which his suprapubic tube has been removed without his knowledge, history is unclear, or malfunctioning suprapubic tube. I changed his suprapubic tube yesterday to 22-Greek 30 mL, upon replacing the suprapubic tube, there was gross pyocystitis. His urine caliber has significantly improved with hydration and medical management. On last admission recently, I discussed with patient that he is too ill and frail to go home, he declined penitentiary, half-way facility. On this admission, he agrees to be evaluated for half-way, penitentiary placement as he is unable to take care of himself. Case management consultation has been obtained. His previous urine culture demonstrates Zosyn sensitivity; however, has component of yeast due to poorly controlled diabetes and we will add Diflucan for now until Infectious Disease has seen the patient. I do recommend his urine culture be treated, as he presents with elevated lactic acid, urine demonstrating gross pyocystitis, which has improved with hydration and medical regimen. [facility]
[2017-09-28] MEDS: Fluconazole In NaCl,Iso-Osm 200 MG in Premix Bag 1 BAG IVPB SCH ×2 (09:00)
[2017-09-28] MEDS: Docusate 100 MG CAP PO SCH ×2 (09:10→20:18)
[2017-09-28] MEDS: Insulin Detemir 100 UNITS/ML 20 UNITS in Pre-Filled Syringe 1 EACH SC SCH ×2 (09:11→20:17)
[2017-09-28] MEDS: Heparin 5,000 UNITS/ML VIAL SC SCH ×3 (09:12→20:18)
[2017-09-28] MEDS ORDERED: HumaLOG 300 UNITS/3 ML VIAL SC PRN (10:36)
--- NOTE | 2017-09-28 11:30 | PDOC.PN ---
- Subjective Encounter Start Date: 09/28/17 Encounter Start Time: 09:30 -: old records requested/rev Patient seen and examined. No new complaints. No overnight events pt decided not to go to rehab - Objective Resuscitation Status: Resuscitation Status FULL:Full Resuscitation MAR Reviewed: Yes Vital Signs & Weight: Vital Signs (12 hours) Temp Pulse Resp BP Pulse Ox 09/28/17 08:57 98.7 F 76 16 147/83 H 98 09/28/17 08:00 98.7 F 76 16 98 09/28/17 04:00 98.1 F 75 16 116/67 09/28/17 00:00 97.8 F 71 16 111/63 96 Weight Weight 149 lb I&O: 09/27/17 09/28/17 09/29/17 06:59 06:59 06:59 Intake Total 1700 Output Total 1300 Balance 400 Result Diagrams: 09/28/17 05:09 09/28/17 05:09 Additional Labs: Accuchecks 09/28/17 09/27/17 09/27/17 04:39 19:58 16:06 POC Glucose 250 H 296 H 276 H Phys Exam - Physical Examination Constitutional: NAD HEENT: PERRLA, moist MMs, sclera anicteric Neck: no JVD, supple Respiratory: no wheezing, no rales, no rhonchi Cardiovascular: RRR, no significant murmur, no rub Gastrointestinal: soft, non-tender, no distention, positive bowel sounds suprapubic cathteter+ Musculoskeletal: no edema, pulses present Neurological: non-focal, normal sensation Lymphatic: no nodes Psychiatric: normal affect Skin: no rash, normal turgor Dx/Plan (1) UTI (urinary tract infection) due to urinary indwelling Bae catheter Code(s): T83.511A - I/I REACT D/T INDWELLING URETHRAL CATHETER, INIT; N39.0 - URINARY TRACT INFECTION, SITE NOT SPECIFIED Status: Acute Qualifiers: Indwelling urinary catheter type: cystostomy catheter (2) Hyperglycemia due to type 2 diabetes mellitus Code(s): E11.65 - TYPE 2 DIABETES MELLITUS WITH HYPERGLYCEMIA Status: Acute Comment: due to noncompliance (3) Lactic acidosis Code(s): E87.2 - ACIDOSIS Status: Acute (4) BPH (benign prostatic hyperplasia) Code(s): N40.0 - BENIGN PROSTATIC HYPERPLASIA WITHOUT LOWER URINRY TRACT SYMP Status: Chronic (5) DM2 (diabetes mellitus, type 2) Status: Chronic (6) Macrocytic anemia Code(s): D53.9 - NUTRITIONAL ANEMIA, UNSPECIFIED Status: Chronic (7) Neurogenic bladder Code(s): N31.9 - NEUROMUSCULAR DYSFUNCTION OF BLADDER, UNSPECIFIED Status: Chronic (8) Protein-calorie malnutrition, moderate Code(s): E44.0 - MODERATE PROTEIN-CALORIE MALNUTRITION Status: Chronic - Plan cont current plan of care, continue antibiotics * urology recommendation noted * follow on blood and urine culture result * restart selected home medication * medication reviewed as below * symptomatic treatment. * continue zosyn * today will control diabetes Review of Systems - Review of Systems Constitutional: weakness. negative: fever, chills, sweats, malaise, other ENT: negative: Ear Pain, Ear Discharge, Nose Pain, Nose Discharge, Nose Congestion, Mouth Pain, Mouth Swelling, Throat Pain, Throat Swelling, Other Respiratory: negative: Cough, Dry, Shortness of Breath, Hemoptysis, SOB with Excertion, Pleuritic Pain, Sputum, Wheezing Cardiovascular: negative: chest pain, palpitations, orthopnea, paroxysmal nocturnal dyspnea, edema, light headedness, other Gastrointestinal: negative: Nausea, Vomiting, Abdominal Pain, Diarrhea, Constipation, Melena, Hematochezia, Other Genitourinary: negative: Dysuria, Frequency, Incontinence, Hematuria, Retention , Other Musculoskeletal: negative: Neck Pain, Shoulder Pain, Arm Pain, Back Pain, Hand Pain, Leg Pain, Foot Pain, Other - Medications/Allergies Allergies/Adverse Reactions: Allergies Allergy/AdvReac Type Severity Reaction Status Date / Time No Known Allergies Allergy Verified 09/27/17 19:01 Medications: Current Medications Acetaminophen (Tylenol) 650 mg PO Q4H PRN PRN Reason: Headache/Fever or Pain Hydrocodone Bitart/Acetaminophen ([place] 5/325) 1 tab PO Q4H PRN PRN Reason: Moderate Pain (4-6) Aspirin (Ecotrin) 81 mg PO DAILY [facility] Cholecalciferol (Vitamin D3) 1,000 units PO DAILY [facility] Dextrose/Water (Dextrose 50%) 25 gm SLOW IVP PRN PRN PRN Reason: Hypoglycemia Docusate Sodium (Colace) 100 mg PO BID [facility] Last Admin: 09/28/17 09:10 Dose: 100 mg Glucagon (Glucagon) 1 mg IM PRN PRN PRN Reason: Hypoglycemia Heparin Sodium (Porcine) (Heparin) 5,000 units SC TID [facility] Last Admin: 09/28/17 09:12 Dose: 5,000 units Dextrose/Water (D5w) 1,000 mls @ 0 mls/hr IV .Q0M PRN; As Directed PRN Reason: Hypoglycemia Sodium Chloride (Normal Saline 0.9%) 1,000 mls @ 75 mls/hr IV .[id number] [facility] Last Admin: 09/28/17 05:58 Dose: Not Given Piperacillin Sod/Tazobactam (Sod 3.375 gm/ Sodium Chloride) 100 mls @ 200 mls/ hr IVPB 0500,1100,1700,2300 [facility] Last Admin: 09/28/17 05:39 Dose: 100 mls Fluconazole/Sodium Chloride (200 mg/ Device) 100 mls @ 100 mls/hr IVPB DAILY [facility] Last Admin: 09/28/17 09:00 Dose: 100 mls Insulin Detemir 20 units/ (Miscellaneous Medication) 0.2 mls @ 0 mls/hr SC BID [facility] Insulin Human Lispro (Humalog) 0 units SC .MODERATE SLIDING SC PRN PRN Reason: Moderate [place] Scale Last Admin: 09/27/17 20:12 Dose: 6 unit Insulin Human Lispro (Humalog) 7 units SC TID-WM PRN PRN Reason: Hyperglycemia Magnesium Hydroxide (Milk Of Magnesium) 30 ml PO DAILYPRN PRN PRN Reason: Constipation Ondansetron HCl (Zofran) 4 mg IVP Q6H PRN PRN Reason: Nausea/Vomiting Tamsulosin HCl (Flomax) 0.4 mg PO DAILY [facility]
--- NOTE | 2017-09-28 15:38 | CON ---
DATE OF CONSULTATION: 09/28/2017 REASON FOR CONSULTATION: Pyocystis. HISTORY OF PRESENT ILLNESS: Mr. Solis is a 72-year-old gentleman who has a history of type 2 diabetes mellitus, urinary retention secondary to neurogenic bladder, chronic suprapubic catheterization for the past 3 years, atrial fib flutter with prior ablation, who I saw at end of August when apparently accidentally removed the suprapubic catheter. Our impression at that time was that he had a positive urine culture with lack of evidence to suggest an invasive inflammatory process for invasive UTI. He was given antimicrobials for few days and then discontinued. He also was noted to have somewhat dilated brain ventricles felt to be either ex vacuo phenomenon or normal pressure hydrocephalus. The patient at this time presents with reported history of extravasation of urine around his catheter associated with elevation in blood sugar. His glycine was found to be in 900, although he did not have any other symptoms such as absence of fever or chills, no headaches, no respiratory symptoms or abdominal pain, no diarrhea, but there was evidence of extravasation of large amounts of urine around the orifice of the suprapubic catheter exit site. PHYSICAL EXAMINATION: VITAL SIGNS: Initial findings included blood pressure 140/78, respiratory rate 18, temperature 97.9, all the other temperature measurement in the emergency room were within normal limits. Pertinent findings in the physical examination. NECK: Supple. LUNGS: With clear breath sounds. ABDOMEN: Soft and nontender. There was evidence of leakage around the suprapubic catheter. LABORATORY DATA: Initial laboratory data included white cell count of 5.4, hemoglobin 16, platelets 272 with normal differential and creatinine 0.69. Lactic acid was 4.3 and then 1.6. Urinalysis with greater than 50 wbc's. We will have a urine culture with a gram negative luci yet to be identified and susceptibility tested. Just a few days ago he had Klebsiella oxytoca isolated. One out of two sets of blood cultures with likely contaminants yet to be fully identified and susceptibility tested. Currently, Mr. Solis is awake. He denies any headaches. No shortness of breath, cough, sputum production or chest pain, no neck pain, no back pain, no abdominal pain. No diarrhea. No joint symptoms. PAST MEDICAL HISTORY: Type 2 diabetes, hypertension, atrial fibrillation, flutter with prior ablation, osteoarthritis, dyslipidemia, neurogenic bladder with suprapubic catheter for past 3 years, epididymal orchitis. PAST SURGICAL HISTORY: Rotator cuff surgery left and suprapubic catheterization. FAMILY HISTORY: Noncontributory. SOCIAL HISTORY: Lives with family members next to [place]. Still smokes daily and drinks 2 beers daily. ALLERGIES: None. CURRENT MEDICATIONS: Include Tylenol, [place], Ecotrin, vitamin D, Diflucan, glucagon, insulin, Zosyn, Flomax. PHYSICAL EXAMINATION: VITAL SIGNS: Have been normal with normal temperature, blood pressure 140/90, pulse 66, respirations 16, O2 sat 98%. SKIN: No areas of skin breakdown except for the suprapubic catheter area with some erythema noted. Peripheral IV access. Patient does not have a Bae catheter. No lymphadenopathy. HEENT: Ocular movements are conjugate. Sclerae white. Oral cavity with numerous missing teeth. Remainder ones with marked decay and gum disease. NECK: Supple. No jugular venous distention. LUNGS: With symmetric air entry. HEART: S1, S2, regular rate. No S3 or S4. ABDOMEN: Soft, but distended, mild tenderness in suprapubic area. EXTREMITIES: Able to move extremities well. NEUROLOGIC: He is awake, oriented, follows commands. LABORATORY DATA AND IMAGING DATA: Has been reviewed above as well as microbiology. Imaging reports includes a chest x-ray with patchy infiltrates in lung bases. Findings are fairly similar to the findings in August. ASSESSMENT AND PLAN: 1. Type 2 diabetes. 2. Neurogenic bladder. 3. Chronic suprapubic catheterization. 4. Pyocystis. 5. Extrusion of the Bae catheter managed with reintroduction recently, now with evidence of extravasation around the catheter. 6. Abnormal chest x-ray. DISCUSSION: The patient may present with intermittent obstruction of the suprapubic catheter due to the pyocystis with management including either systemic antimicrobial therapy with a combination of Diflucan plus quinolone or irrigation with urinary antiseptic. Those irrigations are usually uses a nonabsorbable antimicrobial and are done few times a day for a week or so. The administration of systemic antimicrobials may result in eventual replacement of the current organism, by more resistant pathogens. The patient probably needs to increase fluid intake to dilute his urine and maintain adequate flow through the bladder and suprapubic catheter allowing dilution of the urine and decrease the risk of recurrence of obstruction. The duration of therapy for this pyocystitis if given via the systemic route should be probably not more than what needed to decrease the inspissation of the urine, which should be able to be verified visually. I predict that probably 7 days should be enough. Again, protracted antimicrobial administration is likely to result in replacement by a more resistant pathogen. In this case, we should concentrate on measures that in the future, we will decrease the risk of recurrence of pyelocystitis, particularly increasing oral food intake. MTDD
[2017-09-29] MEDS: Sodium Chloride 0.9% 1,000 ML IV SCH ×3 (00:22→17:29)
[2017-09-29] MEDS: Piperacillin/Tazobactam 3.375 GM in Sodium Chloride 0.9% 100 ML IVPB SCH ×2 (00:25→05:36)
[2017-09-29] MEDS: Fluconazole In NaCl,Iso-Osm 200 MG in Premix Bag 1 BAG IVPB SCH ×2 (08:11)
[2017-09-29] MEDS: Insulin Detemir 100 UNITS/ML 20 UNITS in Pre-Filled Syringe 1 EACH SC SCH ×2 (08:12→20:50)
[2017-09-29] MEDS: Tamsulosin HCl 0.4 MG CAP PO SCH (08:13)
[2017-09-29] MEDS: Docusate 100 MG CAP PO SCH ×2 (08:13→20:49)
[2017-09-29] MEDS: Heparin 5,000 UNITS/ML VIAL SC SCH ×3 (08:14→20:49)
[2017-09-29] MEDS: Aspirin 81 mg Enteric Coated Tablet PO SCH (08:14)
--- NOTE | 2017-09-29 11:19 | PDOC.PN ---
- Subjective Encounter Start Date: 09/29/17 Encounter Start Time: 09:10 Patient seen and examined. No new complaints. No overnight events - Objective Resuscitation Status: Resuscitation Status FULL:Full Resuscitation MAR Reviewed: Yes Vital Signs & Weight: Vital Signs (12 hours) Temp Pulse Resp BP Pulse Ox 09/29/17 08:00 98.2 F 77 14 127/67 94 L 09/29/17 04:00 97.8 F 78 18 108/70 92 L 09/29/17 00:00 97.6 F 70 18 121/76 98 Weight Weight 149 lb I&O: 09/28/17 09/29/17 09/30/17 06:59 06:59 06:59 Intake Total 1700 1400 Output Total 1300 2400 Balance 400 -1000 Result Diagrams: 09/28/17 05:09 09/28/17 05:09 Additional Labs: Accuchecks 09/29/17 09/28/17 09/28/17 04:34 20:17 17:32 POC Glucose 166 H 106 64 L 09/28/17 11:55 POC Glucose 90 Phys Exam - Physical Examination Constitutional: NAD HEENT: PERRLA, moist MMs, sclera anicteric Neck: no JVD, supple Respiratory: no wheezing, no rales, no rhonchi Cardiovascular: RRR, no significant murmur, no rub Gastrointestinal: soft, non-tender, no distention, positive bowel sounds suprapubic catheter Musculoskeletal: no edema, pulses present Neurological: non-focal, normal sensation, moves all 4 limbs Psychiatric: normal affect, A&O x 3 Skin: no rash, normal turgor Dx/Plan (1) UTI (urinary tract infection) due to urinary indwelling Bae catheter Code(s): T83.511A - I/I REACT D/T INDWELLING URETHRAL CATHETER, INIT; N39.0 - URINARY TRACT INFECTION, SITE NOT SPECIFIED Status: Acute Qualifiers: Indwelling urinary catheter type: cystostomy catheter (2) Hyperglycemia due to type 2 diabetes mellitus Code(s): E11.65 - TYPE 2 DIABETES MELLITUS WITH HYPERGLYCEMIA Status: Acute Comment: due to noncompliance (3) Lactic acidosis Code(s): E87.2 - ACIDOSIS Status: Acute (4) BPH (benign prostatic hyperplasia) Code(s): N40.0 - BENIGN PROSTATIC HYPERPLASIA WITHOUT LOWER URINRY TRACT SYMP Status: Chronic (5) DM2 (diabetes mellitus, type 2) Status: Chronic (6) Macrocytic anemia Code(s): D53.9 - NUTRITIONAL ANEMIA, UNSPECIFIED Status: Chronic (7) Neurogenic bladder Code(s): N31.9 - NEUROMUSCULAR DYSFUNCTION OF BLADDER, UNSPECIFIED Status: Chronic (8) Protein-calorie malnutrition, moderate Code(s): E44.0 - MODERATE PROTEIN-CALORIE MALNUTRITION Status: Chronic - Plan cont current plan of care, continue antibiotics * Dc Zosyn * change to levaquin based on culture result * medication reviewed as below * symptomatic treatment * now blood sugar well controlled * continue IVF. Review of Systems - Review of Systems ENT: negative: Ear Pain, Ear Discharge, Nose Pain, Nose Discharge, Nose Congestion, Mouth Pain, Mouth Swelling, Throat Pain, Throat Swelling, Other Respiratory: negative: Cough, Dry, Shortness of Breath, Hemoptysis, SOB with Excertion, Pleuritic Pain, Sputum, Wheezing Cardiovascular: negative: chest pain, palpitations, orthopnea, paroxysmal nocturnal dyspnea, edema, light headedness, other Gastrointestinal: negative: Nausea, Vomiting, Abdominal Pain, Diarrhea, Constipation, Melena, Hematochezia, Other Genitourinary: negative: Dysuria, Frequency, Incontinence, Hematuria, Retention , Other Musculoskeletal: negative: Neck Pain, Shoulder Pain, Arm Pain, Back Pain, Hand Pain, Leg Pain, Foot Pain, Other Skin: negative: Rash, Lesions, [place], Bruising, Other - Medications/Allergies Allergies/Adverse Reactions: Allergies Allergy/AdvReac Type Severity Reaction Status Date / Time No Known Allergies Allergy Verified 09/27/17 19:01 Medications: Current Medications Acetaminophen (Tylenol) 650 mg PO Q4H PRN PRN Reason: Headache/Fever or Pain Hydrocodone Bitart/Acetaminophen ([place] 5/325) 1 tab PO Q4H PRN PRN Reason: Moderate Pain (4-6) Aspirin (Ecotrin) 81 mg PO DAILY [facility] Last Admin: 09/29/17 08:14 Dose: 81 mg Cholecalciferol (Vitamin D3) 1,000 units PO DAILY [facility] Last Admin: 09/29/17 08:13 Dose: 1,000 units Dextrose/Water (Dextrose 50%) 25 gm SLOW IVP PRN PRN PRN Reason: Hypoglycemia Docusate Sodium (Colace) 100 mg PO BID [facility] Last Admin: 02/14/18 08:13 Dose: 100 mg Glucagon (Glucagon) 1 mg IM PRN PRN PRN Reason: Hypoglycemia Heparin Sodium (Porcine) (Heparin) 5,000 units SC BID [facility] Last Admin: 09/29/17 09:08 Dose: Not Given Dextrose/Water (D5w) 1,000 mls @ 0 mls/hr IV .Q0M PRN; As Directed PRN Reason: Hypoglycemia Sodium Chloride (Normal Saline 0.9%) 1,000 mls @ 75 mls/hr IV .[id number] [facility] Last Admin: 09/29/17 09:07 Dose: Not Given Fluconazole/Sodium Chloride (200 mg/ Device) 100 mls @ 100 mls/hr IVPB DAILY [facility] Last Admin: 09/29/17 08:11 Dose: 100 mls Insulin Detemir 20 units/ (Miscellaneous Medication) 0.2 mls @ 0 mls/hr SC BID [facility] Last Admin: 09/29/17 08:12 Dose: 0.2 mls Levofloxacin 500 mg/ Device 100 mls @ 100 mls/hr IVPB Q24HR [facility] Last Admin: 09/29/17 09:56 Dose: 100 mls Insulin Human Lispro (Humalog) 0 units SC .MODERATE SLIDING SC PRN PRN Reason: Moderate Correctional Scale Last Admin: 09/27/17 20:12 Dose: 6 unit Insulin Human Lispro (Humalog) 7 units SC TID-WM PRN PRN Reason: Hyperglycemia Magnesium Hydroxide (Milk Of Magnesium) 30 ml PO DAILYPRN PRN PRN Reason: Constipation Ondansetron HCl (Zofran) 4 mg IVP Q6H PRN PRN Reason: Nausea/Vomiting Tamsulosin HCl (Flomax) 0.4 mg PO DAILY [facility] Last Admin: 09/29/17 08:13 Dose: 0.4 mg
[2017-09-29] MEDS: HumaLOG 300 UNITS/3 ML VIAL SC PRN (12:53)
[2017-09-30] MEDS: Aspirin 81 mg Enteric Coated Tablet PO SCH (08:13)
[2017-09-30] MEDS: Tamsulosin HCl 0.4 MG CAP PO SCH (08:13)
[2017-09-30] MEDS: Heparin 5,000 UNITS/ML VIAL SC SCH (08:13)
[2017-09-30] MEDS: Insulin Detemir 100 UNITS/ML 20 UNITS in Pre-Filled Syringe 1 EACH SC SCH ×2 (08:14→21:29)
[2017-09-30] MEDS: Docusate 100 MG CAP PO SCH ×2 (08:14→21:29)
[2017-09-30] MEDS: Fluconazole In NaCl,Iso-Osm 200 MG in Premix Bag 1 BAG IVPB SCH ×2 (08:15)
[2017-09-30] MEDS: Sodium Chloride 0.9% 1,000 ML IV SCH ×2 (09:27→22:45)
--- NOTE | 2017-09-30 10:42 | PDOC.PN ---
- Subjective Encounter Start Date: 09/30/17 Encounter Start Time: 09:00 Patient seen and examined. No new complaints. No overnight events - Objective Resuscitation Status: Resuscitation Status FULL:Full Resuscitation MAR Reviewed: Yes Vital Signs & Weight: Vital Signs (12 hours) Temp Pulse Resp BP Pulse Ox 09/30/17 08:00 97.7 F 73 16 134/68 93 L Weight Weight 149 lb I&O: 09/29/17 09/30/17 10/01/17 06:59 06:59 06:59 Intake Total 1400 1500 Output Total 2400 1400 Balance -1000 1500 -1400 Result Diagrams: 09/28/17 05:09 09/28/17 05:09 Additional Labs: Accuchecks 09/30/17 09/29/17 09/29/17 05:31 20:31 16:22 POC Glucose 62 L 132 H 81 09/29/17 11:45 POC Glucose 312 H Phys Exam - Physical Examination Constitutional: NAD HEENT: PERRLA, moist MMs, sclera anicteric Neck: no JVD, supple Respiratory: no wheezing, no rales, no rhonchi Cardiovascular: RRR, no significant murmur, no rub Gastrointestinal: soft, non-tender, no distention, positive bowel sounds suprapubic catheter Musculoskeletal: no edema, pulses present Neurological: non-focal, normal sensation, moves all 4 limbs Psychiatric: normal affect, A&O x 3 Skin: no rash, normal turgor Dx/Plan (1) UTI (urinary tract infection) due to urinary indwelling Bae catheter Code(s): T83.511A - I/I REACT D/T INDWELLING URETHRAL CATHETER, INIT; N39.0 - URINARY TRACT INFECTION, SITE NOT SPECIFIED Status: Acute Qualifiers: Indwelling urinary catheter type: cystostomy catheter (2) Hyperglycemia due to type 2 diabetes mellitus Code(s): E11.65 - TYPE 2 DIABETES MELLITUS WITH HYPERGLYCEMIA Status: Acute Comment: due to noncompliance (3) Lactic acidosis Code(s): E87.2 - ACIDOSIS Status: Acute (4) BPH (benign prostatic hyperplasia) Code(s): N40.0 - BENIGN PROSTATIC HYPERPLASIA WITHOUT LOWER URINRY TRACT SYMP Status: Chronic (5) DM2 (diabetes mellitus, type 2) Status: Chronic (6) Macrocytic anemia Code(s): D53.9 - NUTRITIONAL ANEMIA, UNSPECIFIED Status: Chronic (7) Neurogenic bladder Code(s): N31.9 - NEUROMUSCULAR DYSFUNCTION OF BLADDER, UNSPECIFIED Status: Chronic (8) Protein-calorie malnutrition, moderate Code(s): E44.0 - MODERATE PROTEIN-CALORIE MALNUTRITION Status: Chronic - Plan cont current plan of care, 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 Review of Systems - Review of Systems ENT: negative: Ear Pain, Ear Discharge, Nose Pain, Nose Discharge, Nose Congestion, Mouth Pain, Mouth Swelling, Throat Pain, Throat Swelling, Other Respiratory: negative: Cough, Dry, Shortness of Breath, Hemoptysis, SOB with Excertion, Pleuritic Pain, Sputum, Wheezing Cardiovascular: negative: chest pain, palpitations, orthopnea, paroxysmal nocturnal dyspnea, edema, light headedness, other Gastrointestinal: negative: Nausea, Vomiting, Abdominal Pain, Diarrhea, Constipation, Melena, Hematochezia, Other Genitourinary: negative: Dysuria, Frequency, Incontinence, Hematuria, Retention , Other Musculoskeletal: negative: Neck Pain, Shoulder Pain, Arm Pain, Back Pain, Hand Pain, Leg Pain, Foot Pain, Other - Medications/Allergies Allergies/Adverse Reactions: Allergies Allergy/AdvReac Type Severity Reaction Status Date / Time No Known Allergies Allergy Verified 09/27/17 19:01 Medications: Current Medications Acetaminophen (Tylenol) 650 mg PO Q4H PRN PRN Reason: Headache/Fever or Pain Hydrocodone Bitart/Acetaminophen ([place] 5/325) 1 tab PO Q4H PRN PRN Reason: Moderate Pain (4-6) Aspirin (Ecotrin) 81 mg PO DAILY [facility] Last Admin: 09/30/17 08:13 Dose: 81 mg Cholecalciferol (Vitamin D3) 1,000 units PO DAILY [facility] Last Admin: 09/30/17 09:26 Dose: 1,000 units Dextrose/Water (Dextrose 50%) 25 gm SLOW IVP PRN PRN PRN Reason: Hypoglycemia Docusate Sodium (Colace) 100 mg PO BID [facility] Last Admin: 09/30/17 08:14 Dose: 100 mg Glucagon (Glucagon) 1 mg IM PRN PRN PRN Reason: Hypoglycemia Heparin Sodium (Porcine) (Heparin) 5,000 units SC BID [facility] Last Admin: 09/30/17 08:13 Dose: 5,000 units Dextrose/Water (D5w) 1,000 mls @ 0 mls/hr IV .Q0M PRN; As Directed PRN Reason: Hypoglycemia Sodium Chloride (Normal Saline 0.9%) 1,000 mls @ 75 mls/hr IV .[id number] [facility] Last Admin: 09/30/17 09:27 Dose: 1,000 mls Fluconazole/Sodium Chloride (200 mg/ Device) 100 mls @ 100 mls/hr IVPB DAILY [facility] Last Admin: 09/30/17 08:15 Dose: 100 mls Insulin Detemir 20 units/ (Miscellaneous Medication) 0.2 mls @ 0 mls/hr SC BID [facility] Last Admin: 09/30/17 08:14 Dose: 0.2 mls Levofloxacin 500 mg/ Device 100 mls @ 100 mls/hr IVPB Q24HR [facility] Last Admin: 09/30/17 09:26 Dose: 100 mls Insulin Human Lispro (Humalog) 0 units SC .MODERATE SLIDING SC PRN PRN Reason: Moderate Correctional Scale Last Admin: 09/29/17 12:53 Dose: 8 unit Insulin Human Lispro (Humalog) 7 units SC TID-WM PRN PRN Reason: Hyperglycemia Magnesium Hydroxide (Milk Of Magnesium) 30 ml PO DAILYPRN PRN PRN Reason: Constipation Ondansetron HCl (Zofran) 4 mg IVP Q6H PRN PRN Reason: Nausea/Vomiting Sodium Chloride (Flush - Normal Saline) 10 ml IVF Q12HR [facility] Last Admin: 09/30/17 08:17 Dose: Not Given Sodium Chloride (Flush - Normal Saline) 10 ml IVF PRN PRN PRN Reason: Saline Flush Tamsulosin HCl (Flomax) 0.4 mg PO DAILY [facility] Last Admin: 09/30/17 08:13 Dose: 0.4 mg
[2017-09-30] MEDS: HumaLOG 300 UNITS/3 ML VIAL SC PRN (13:24)
--- NOTE | 2017-10-01 01:06 | CON ---
DATE OF CONSULTATION REQUEST AND REPORT: 09/30/2017 REASON FOR CONSULTATION: 1. Chronic indwelling suprapubic tube. 2. Neurogenic bladder. 3. History of benign prostatic hypertrophy. HISTORY OF PRESENT ILLNESS: Mr. Alexandre Solis is a 72-year-old Nepali speaking male who h as previously been under the care of Dr. Annmarie Bose has managed his neurogenic bladder with a chronic indwelling suprapubic tube. Patient is admitted on this hospital admission on 09/27/2017 wit h elevated glucose self-reported at 900 and tested in the emergency room at 550. He is admitted for medical management associated with that. He did have a chronic indwelling suprapubic tube, which has been changed by Dr. Bose. Patient had his first SP tube, according to the records that I am unable to access around 09/01/2016, has been on chronic upsizing and is now up to a 22-Khmer SP tube . Patient does have a degree of BPH, but this has not been severe. He has undergone previous urodyn amic evaluation in Dr. Annmarie Bose's care and has been found to have a neurogenic bladder, whic h is currently managed by chronic indwelling suprapubic tube. Patient's admission urinalysis had a n umber of findings, which are associated with chronic indwelling suprapubic tubes and he had expected unusual organisms isolated during culture from his bladder. These findings would be normal for a SP tube and does not indicate sepsis in any way. Patient has undergone SP tube changed since he has bee n in the hospital by his report. ALLERGIES: No known drug allergies. COMPLETE MEDICATION LIST: Includes the followin. Tylenol. 2. [place]. 3. Ecotrin 81 mg p.o. daily. 4. Vitamin D3. 5. Colace. 6. Fluconazole. 7. Heparin. 8. Detemir insulin 20 units subcutaneous b.i.d. 9. Lispro, Humalog sliding scale moderate. 10. Humalog 7 units subcutaneous t.i.d. 11. Levofloxacin 500 mg q.24. 12. Zofran 4 mg IVP p.r.n. nausea and vomiting. 13. Flomax 0.4 mg p.o. daily. PAST MEDICAL HISTORY: 1. Diabetes mellitus, insulin-dependent. 2. BPH with obstruction. 3. Neurogenic bladder, currently managed with suprapubic tube. PAST SURGICAL HISTORY: Suprapubic tube on 09/01/2016. SOCIAL HISTORY: Patient is currently unemployed. He admits to cigarette smoking, does not drink alc ohol, or use illicit drugs. FAMILY MEDICAL HISTORY: Patient's mother is still alive in her late 80s. She does have diabetes timothy litus. Patient's father is secondary to alcoholism. REVIEW OF SYSTEMS: Constitutional: Patient does not report significant weight loss or weight gain. He did not report fever or chills prior to hospitalization. Head, Eyes, Ears, Nose, and Throat: Ne gative. Skin: Negative. Cardiovascular: Patient denies current chest pain at admission, no shortn ess of breath, palpitations, or arm or chin pain. Pulmonary: Negative for cough, shortness of breat h. No hematemesis or other sputum production. Gastrointestinal: No specific complaints. Genitouri nary: Patient specifically denies urinary urgency or discomfort. He is adapted using SP tube does n ot find it uncomfortable, does report some pyuria from [id number]. Musculoskeletal: Negative. He matologic: Negative. PHYSICAL EXAMINATION: VITAL SIGNS: Patient is afebrile with current temperature of 97.8, pulse 81, respirations 16, O2 sat uration on room air is 95%, blood pressure is 128/79. GENERAL: This is an elderly Nepali speaking male who appears to be a reasonable historian. He has no specific urologic complaints at this point. He does have a suprapubic tube in place, whi ch is draining clear colored urine at the present time. He does complain of some drainage around his SP tube insertion site. I noticed that his urine is having a trouble upheld to get into the bag, ho wever. Head, Eyes, Ears, Nose, and Throat: Extraocular movements are intact. Sclerae anicteric. Oropharyn x is clear. NECK: Supple. LUNGS: Clear to auscultation bilaterally. CARDIAC: There is a regular rate and rhythm. BACK: No costovertebral angle tenderness. No point tenderness along the course of the spine. ABDOMEN: Soft and nontender. Suprapubic tube is in place. A 22-Khmer in diameter is draining christianne ectly as noted earlier, the urine appears clear. GENITOURINARY: Phallus is without lesion is uncircumcised. Foreskin is difficult to retract and gerber s not retract completely consistent with phimosis. Testes are benign. Palpation of inguinal canals finds no evidence of hernia. RECTAL: Digital rectal examination finds prostate gland, which palpates to about 30-32 grams in size . It is smooth, anodular, and nontender. There are no sinister findings to suggest prostate cancer. Brown stool is present in the rectum. Patient appears to be incontinent of stool with initial exam . EXTREMITIES: Patient has all of his toes and fingers. There did not appear to be any necrotic areas . I do not appreciate any decubiti in the patient. NEUROLOGIC: Patient is able to stand and maintain his weight against gravity. He is able to ambulat e with a little bit of difficulty. There does not appear to be significant loss of muscle strength o r asymmetry present. Gait was not assessed due to the patient's general medical condition. LABORATORY AND X-RAY FINDINGS: Patient has not had an elevated white count during this admission and has been neutrophilia. No evidence of left shift. Hemoglobin is 13 with hematocrit of 37.7. Serum chemistries showed patient's blood urea nitrogen currently at 20 with a creatinine of 0.69 on 2015. The patient's hemoglobin A1c is 12 consistent with extremely poor glucose control over the rachel g term. Patient's liver enzyme was appeared to be normal. Patient's prostate specific antigen on was 0.37 nanograms per mL. Urinalysis on 09/27/2017 showed urinary protein at 100 mg per deciliter, glucose 250 mg per deciliter , moderate amount of blood, and nitrite positivity, a large amount of leukocyte esterase, 7-10 red ce lls per high power field and greater than 50 white cells per high power field consistent with pyuria, 4+ bacteria were present. CT scan of the patient's abdomen and pelvis was reviewed, this study from 05/31/2017 was reviewed on the PACS monitor. Measure dimensions of the patient's prostate gland, which was 30 x 40 x 50 mm. Ca lculated prostate ellipse volume is 32 cubic cm. Patient's kidneys are symmetric and reasonable amou nt of parenchyma was preserved on both sides, it did not appear to be any kidney stones. 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 He does not appe ar to be any hydronephrosis or hydroureter associated with the patient's horseshoe kidney. At the bl adder level, a suprapubic tube can be seen indwelling bladder wall thickness approximately 7 mm. The tube appears to be appropriately placed. There was an indentation posteriorly secondary to the tip of the catheter making contact with posterior bladder wall. ASSESSMENT AND PLAN: 1. Neurogenic bladder, this is chronic and related to the patient's poor glucose control. 2. Diabetes mellitus and poor control. Admission blood glucose of over 500 and hemoglobin A1c of 12 indicates poor control. Patient needs aggressive management with respect to diabetes, as there may be other progression of his symptoms. 3. 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 I cannot appreciate any stones that would be contributing to the urinary tract infection. 4. Chronic indwelling suprapubic tube and pyuria. Patient's pyuria likely related to chronic SP tub e issues, thus his pyuria is probably also related to that, I would recommend bladder irrigation on d aily basis and weekly SP tube changes, which can be performed by home health nursing. Patient's comp laints of urine leaking around the catheter associated with drainage methods that he uses, urine does not run upheld and gravity bags must allow gravity to take urine to the bag. A green-colored clip i s associated with each Bae drainage bag and is supposed to be used, clipped the drainage tube line, flat on the patient's bed such that urine drains downhill. His complaints of continuing urinary conrad kage issues are associated with improper positioning of the bag relative to the patient. 5. Concerns regarding urinary tract infection contributing to the patient's admission, patient's whi te count was not elevated yet, no evidence of left shift, did not have fever, and simply has an indwe lling SP tube with pyuria. I would not recommend treating this patient with antibiotic coverage for germs isolated from a chronic indwelling SP tube instead, I would recommend bladder irrigation and fr equent changes of the SP tube instead. Routine treatment of urine organisms from chronic indwelling tubes is likely to lead to the development of multidrug-resistant organisms and poor outcomes. We sh ould not treat his SP tube organisms, unless the patient is acutely ill and those organisms are isola mariana from his blood. At the present time, patient does not meet those criteria and I would discontinu e antibiotic treatment. Patient's pyuria is probably associated with infrequent changes of the SP tu be and this can be remedied by bladder irrigation and frequent SP tube change. Changes can be perfor med by home health nursing for this patient. 6. BPH. Patient has prostate hypertrophy, but it is minimal in nature. He has been on Flomax. I w kristinld recommend the addition of finasteride to see if some shrinkage of the prostate gland can occur. Patient does report that he sometimes able to void per urethra, this would imply that there is some ability to void from below. Patient may follow up in my office and a call for an appointment. Over 80 minutes initial evaluation and assessment time was spent on evaluation and assessment of this patient, coordination with staff, and review of multiple imaging studies.
[2017-10-01] MEDS: Heparin 5,000 UNITS/ML VIAL SC SCH ×3 (06:38→20:22)
[2017-10-01] MEDS: Tamsulosin HCl 0.4 MG CAP PO SCH (08:16)
[2017-10-01] MEDS: Aspirin 81 mg Enteric Coated Tablet PO SCH (08:16)
[2017-10-01] MEDS: Docusate 100 MG CAP PO SCH ×2 (08:16→20:20)
[2017-10-01] MEDS: Finasteride 5 MG TAB PO SCH (08:16)
[2017-10-01] MEDS: Insulin Detemir 100 UNITS/ML 20 UNITS in Pre-Filled Syringe 1 EACH SC SCH ×2 (08:17→20:20)
[2017-10-01] MEDS: Fluconazole In NaCl,Iso-Osm 200 MG in Premix Bag 1 BAG IVPB SCH ×2 (09:44)
--- NOTE | 2017-10-01 10:10 | PDOC.PN ---
- Subjective Encounter Start Date: 10/01/17 Encounter Start Time: 08:40 Patient seen and examined. No new complaints. No overnight events - Objective Resuscitation Status: Resuscitation Status FULL:Full Resuscitation MAR Reviewed: Yes Vital Signs & Weight: Vital Signs (12 hours) Temp Pulse Resp BP Pulse Ox 10/01/17 08:00 97.5 F L 75 18 134/75 98 Weight Weight 149 lb I&O: 09/30/17 10/01/17 10/02/17 06:59 06:59 06:59 Intake Total 1500 2300 800 Output Total 2750 1600 Balance 1500 -450 -800 Result Diagrams: 09/28/17 05:09 09/28/17 05:09 Additional Labs: Accuchecks 10/01/17 09/30/17 09/30/17 04:45 20:26 16:12 POC Glucose 219 H 291 H 95 09/30/17 12:08 POC Glucose 329 H Phys Exam - Physical Examination Constitutional: NAD HEENT: PERRLA, moist MMs, sclera anicteric Neck: no JVD, supple Respiratory: no wheezing, no rales, no rhonchi Cardiovascular: RRR, no significant murmur, no rub Gastrointestinal: soft, non-tender, no distention, positive bowel sounds suprapubic cathteter Musculoskeletal: no edema, pulses present Neurological: non-focal, normal sensation, moves all 4 limbs Lymphatic: no nodes Psychiatric: normal affect, A&O x 3 Skin: no rash, normal turgor Dx/Plan (1) UTI (urinary tract infection) due to urinary indwelling Bae catheter Code(s): T83.511A - I/I REACT D/T INDWELLING URETHRAL CATHETER, INIT; N39.0 - URINARY TRACT INFECTION, SITE NOT SPECIFIED Status: Acute Qualifiers: Indwelling urinary catheter type: cystostomy catheter (2) Hyperglycemia due to type 2 diabetes mellitus Code(s): E11.65 - TYPE 2 DIABETES MELLITUS WITH HYPERGLYCEMIA Status: Acute Comment: due to noncompliance (3) Lactic acidosis Code(s): E87.2 - ACIDOSIS Status: Acute (4) BPH (benign prostatic hyperplasia) Code(s): N40.0 - BENIGN PROSTATIC HYPERPLASIA WITHOUT LOWER URINRY TRACT SYMP Status: Chronic (5) DM2 (diabetes mellitus, type 2) Status: Chronic (6) Macrocytic anemia Code(s): D53.9 - NUTRITIONAL ANEMIA, UNSPECIFIED Status: Chronic (7) Neurogenic bladder Code(s): N31.9 - NEUROMUSCULAR DYSFUNCTION OF BLADDER, UNSPECIFIED Status: Chronic (8) Protein-calorie malnutrition, moderate Code(s): E44.0 - MODERATE PROTEIN-CALORIE MALNUTRITION Status: Chronic - Plan cont current plan of care, 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 Review of Systems - Review of Systems ENT: negative: Ear Pain, Ear Discharge, Nose Pain, Nose Discharge, Nose Congestion, Mouth Pain, Mouth Swelling, Throat Pain, Throat Swelling, Other Respiratory: negative: Cough, Dry, Shortness of Breath, Hemoptysis, SOB with Excertion, Pleuritic Pain, Sputum, Wheezing Cardiovascular: negative: chest pain, palpitations, orthopnea, paroxysmal nocturnal dyspnea, edema, light headedness, other Gastrointestinal: negative: Nausea, Vomiting, Abdominal Pain, Diarrhea, Constipation, Melena, Hematochezia, Other Genitourinary: negative: Dysuria, Frequency, Incontinence, Hematuria, Retention , Other Musculoskeletal: negative: Neck Pain, Shoulder Pain, Arm Pain, Back Pain, Hand Pain, Leg Pain, Foot Pain, Other Skin: negative: Rash, Lesions, [place], Bruising, Other - Medications/Allergies Allergies/Adverse Reactions: Allergies Allergy/AdvReac Type Severity Reaction Status Date / Time No Known Allergies Allergy Verified 09/27/17 19:01 Medications: Current Medications Acetaminophen (Tylenol) 650 mg PO Q4H PRN PRN Reason: Headache/Fever or Pain Hydrocodone Bitart/Acetaminophen ([place] 5/325) 1 tab PO Q4H PRN PRN Reason: Moderate Pain (4-6) Aspirin (Ecotrin) 81 mg PO DAILY [facility] Last Admin: 10/01/17 08:16 Dose: 81 mg Cholecalciferol (Vitamin D3) 1,000 units PO DAILY [facility] Last Admin: 10/01/17 08:16 Dose: 1,000 units Dextrose/Water (Dextrose 50%) 25 gm SLOW IVP PRN PRN PRN Reason: Hypoglycemia Docusate Sodium (Colace) 100 mg PO BID [facility] Last Admin: 10/01/17 08:16 Dose: 100 mg Finasteride (Proscar) 5 mg PO DAILY [facility] Last Admin: 10/01/17 08:16 Dose: 5 mg Glucagon (Glucagon) 1 mg IM PRN PRN PRN Reason: Hypoglycemia Heparin Sodium (Porcine) (Heparin) 5,000 units SC BID [facility] Last Admin: 10/01/17 08:16 Dose: 5,000 units Dextrose/Water (D5w) 1,000 mls @ 0 mls/hr IV .Q0M PRN; As Directed PRN Reason: Hypoglycemia Sodium Chloride (Normal Saline 0.9%) 1,000 mls @ 75 mls/hr IV .[id number] [facility] Last Admin: 09/30/17 22:45 Dose: 1,000 mls Fluconazole/Sodium Chloride (200 mg/ Device) 100 mls @ 100 mls/hr IVPB DAILY [facility] Last Admin: 10/01/17 09:44 Dose: 100 mls Insulin Detemir 20 units/ (Miscellaneous Medication) 0.2 mls @ 0 mls/hr SC BID [facility] Last Admin: 10/01/17 08:17 Dose: 0.2 mls Levofloxacin 500 mg/ Device 100 mls @ 100 mls/hr IVPB Q24HR [facility] Last Admin: 10/01/17 08:17 Dose: 100 mls Insulin Human Lispro (Humalog) 0 units SC .MODERATE SLIDING SC PRN PRN Reason: Moderate Correctional Scale Last Admin: 09/30/17 13:24 Dose: 8 unit Insulin Human Lispro (Humalog) 7 units SC TID-WM PRN PRN Reason: Hyperglycemia Magnesium Hydroxide (Milk Of Magnesium) 30 ml PO DAILYPRN PRN PRN Reason: Constipation Ondansetron HCl (Zofran) 4 mg IVP Q6H PRN PRN Reason: Nausea/Vomiting Sodium Chloride (Flush - Normal Saline) 10 ml IVF Q12HR [facility] Last Admin: 10/01/17 08:16 Dose: Not Given Sodium Chloride (Flush - Normal Saline) 10 ml IVF PRN PRN PRN Reason: Saline Flush Tamsulosin HCl (Flomax) 0.4 mg PO DAILY [facility] Last Admin: 10/01/17 08:16 Dose: 0.4 mg
[2017-10-01] MEDS: Sodium Chloride 0.9% 1,000 ML IV SCH (16:52)
[2017-10-02] MEDS: Tamsulosin HCl 0.4 MG CAP PO SCH (08:01)
[2017-10-02] MEDS: Docusate 100 MG CAP PO SCH (08:01)
[2017-10-02] MEDS: Heparin 5,000 UNITS/ML VIAL SC SCH (08:02)
[2017-10-02] MEDS: Insulin Detemir 100 UNITS/ML 20 UNITS in Pre-Filled Syringe 1 EACH SC SCH (08:02)
[2017-10-02] MEDS: Sodium Chloride 0.9% 1,000 ML IV SCH ×2 (08:02→15:56)
[2017-10-02] MEDS: Finasteride 5 MG TAB PO SCH (08:02)
[2017-10-02] MEDS: Aspirin 81 mg Enteric Coated Tablet PO SCH (08:02)
[2017-10-02] MEDS: Fluconazole In NaCl,Iso-Osm 200 MG in Premix Bag 1 BAG IVPB SCH ×2 (09:15)
--- NOTE | 2017-10-02 10:10 | PDOC.PN ---
- Subjective Encounter Start Date: 10/02/17 Encounter Start Time: 07:40 Patient seen and examined. No new complaints. No overnight events - Objective Resuscitation Status: Resuscitation Status FULL:Full Resuscitation MAR Reviewed: Yes Vital Signs & Weight: Vital Signs (12 hours) Temp Pulse Resp BP Pulse Ox 10/02/17 08:00 98.2 F 93 18 109/72 97 Weight Weight 149 lb I&O: 10/01/17 10/02/17 10/03/17 06:59 06:59 06:59 Intake Total 2300 2772 Output Total 2750 5000 Balance -450 -6216 Result Diagrams: 09/28/17 05:09 09/28/17 05:09 Additional Labs: Accuchecks 10/02/17 10/01/17 10/01/17 05:59 20:39 17:03 POC Glucose 147 H 101 92 10/01/17 11:03 POC Glucose 127 H Phys Exam - Physical Examination Constitutional: NAD HEENT: PERRLA, moist MMs, sclera anicteric Neck: no JVD, supple Respiratory: no wheezing, no rales, no rhonchi Cardiovascular: RRR, no significant murmur, no rub Gastrointestinal: soft, non-tender, no distention, positive bowel sounds suprapubic catheter Musculoskeletal: no edema, pulses present Neurological: non-focal, normal sensation, moves all 4 limbs Psychiatric: normal affect, A&O x 3 Skin: no rash, normal turgor Dx/Plan (1) UTI (urinary tract infection) due to urinary indwelling Bae catheter Code(s): T83.511A - I/I REACT D/T INDWELLING URETHRAL CATHETER, INIT; N39.0 - URINARY TRACT INFECTION, SITE NOT SPECIFIED Status: Acute Qualifiers: Indwelling urinary catheter type: cystostomy catheter (2) Hyperglycemia due to type 2 diabetes mellitus Code(s): E11.65 - TYPE 2 DIABETES MELLITUS WITH HYPERGLYCEMIA Status: Acute Comment: due to noncompliance (3) Lactic acidosis Code(s): E87.2 - ACIDOSIS Status: Acute (4) BPH (benign prostatic hyperplasia) Code(s): N40.0 - BENIGN PROSTATIC HYPERPLASIA WITHOUT LOWER URINRY TRACT SYMP Status: Chronic (5) DM2 (diabetes mellitus, type 2) Status: Chronic (6) Macrocytic anemia Code(s): D53.9 - NUTRITIONAL ANEMIA, UNSPECIFIED Status: Chronic (7) Neurogenic bladder Code(s): N31.9 - NEUROMUSCULAR DYSFUNCTION OF BLADDER, UNSPECIFIED Status: Chronic (8) Protein-calorie malnutrition, moderate Code(s): E44.0 - MODERATE PROTEIN-CALORIE MALNUTRITION Status: Chronic - 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 Review of Systems - Review of Systems ENT: negative: Ear Pain, Ear Discharge, Nose Pain, Nose Discharge, Nose Congestion, Mouth Pain, Mouth Swelling, Throat Pain, Throat Swelling, Other Respiratory: negative: Cough, Dry, Shortness of Breath, Hemoptysis, SOB with Excertion, Pleuritic Pain, Sputum, Wheezing Cardiovascular: negative: chest pain, palpitations, orthopnea, paroxysmal nocturnal dyspnea, edema, light headedness, other Gastrointestinal: negative: Nausea, Vomiting, Abdominal Pain, Diarrhea, Constipation, Melena, Hematochezia, Other Genitourinary: negative: Dysuria, Frequency, Incontinence, Hematuria, Retention , Other Musculoskeletal: negative: Neck Pain, Shoulder Pain, Arm Pain, Back Pain, Hand Pain, Leg Pain, Foot Pain, Other - Medications/Allergies Allergies/Adverse Reactions: Allergies Allergy/AdvReac Type Severity Reaction Status Date / Time No Known Allergies Allergy Verified 09/27/17 19:01 Medications: Current Medications Acetaminophen (Tylenol) 650 mg PO Q4H PRN PRN Reason: Headache/Fever or Pain Hydrocodone Bitart/Acetaminophen ([place] 5/325) 1 tab PO Q4H PRN PRN Reason: Moderate Pain (4-6) Aspirin (Ecotrin) 81 mg PO DAILY [facility] Last Admin: 10/02/17 08:02 Dose: 81 mg Cholecalciferol (Vitamin D3) 1,000 units PO DAILY [facility] Last Admin: 10/02/17 08:02 Dose: 1,000 units Dextrose/Water (Dextrose 50%) 25 gm SLOW IVP PRN PRN PRN Reason: Hypoglycemia Docusate Sodium (Colace) 100 mg PO BID [facility] Last Admin: 10/02/17 08:01 Dose: 100 mg Finasteride (Proscar) 5 mg PO DAILY [facility] Last Admin: 10/02/17 08:02 Dose: 5 mg Glucagon (Glucagon) 1 mg IM PRN PRN PRN Reason: Hypoglycemia Heparin Sodium (Porcine) (Heparin) 5,000 units SC BID [facility] Last Admin: 10/02/17 08:02 Dose: 5,000 units Dextrose/Water (D5w) 1,000 mls @ 0 mls/hr IV .Q0M PRN; As Directed PRN Reason: Hypoglycemia Sodium Chloride (Normal Saline 0.9%) 1,000 mls @ 75 mls/hr IV .[id number] [facility] Last Admin: 10/02/17 08:02 Dose: Not Given Fluconazole/Sodium Chloride (200 mg/ Device) 100 mls @ 100 mls/hr IVPB DAILY [facility] Last Admin: 10/02/17 09:15 Dose: 100 mls Insulin Detemir 20 units/ (Miscellaneous Medication) 0.2 mls @ 0 mls/hr SC BID [facility] Last Admin: 10/02/17 08:02 Dose: 0.2 mls Levofloxacin 500 mg/ Device 100 mls @ 100 mls/hr IVPB Q24HR [facility] Last Admin: 10/02/17 08:01 Dose: 100 mls Insulin Human Lispro (Humalog) 0 units SC .MODERATE SLIDING SC PRN PRN Reason: Moderate Correctional Scale Last Admin: 09/30/17 13:24 Dose: 8 unit Insulin Human Lispro (Humalog) 7 units SC TID-WM PRN PRN Reason: Hyperglycemia Magnesium Hydroxide (Milk Of Magnesium) 30 ml PO DAILYPRN PRN PRN Reason: Constipation Ondansetron HCl (Zofran) 4 mg IVP Q6H PRN PRN Reason: Nausea/Vomiting Sodium Chloride (Flush - Normal Saline) 10 ml IVF Q12HR [facility] Last Admin: 10/02/17 08:03 Dose: Not Given Sodium Chloride (Flush - Normal Saline) 10 ml IVF PRN PRN PRN Reason: Saline Flush Tamsulosin HCl (Flomax) 0.4 mg PO DAILY [facility] Last Admin: 10/02/17 08:01 Dose: 0.4 mg
--- NOTE | 2017-10-02 12:06 | DIS ---
DATE OF ADMISSION: 09/27/2017 DATE OF DISCHARGE: 10/02/2017 PRIMARY CARE PHYSICIAN: [facility] call admission. DISCHARGE DISPOSITION: Inpatient rehabilitation. PRIMARY DISCHARGE DIAGNOSES: 1. Hyperglycemia due to diabetes type 2 due to noncompliance. 2. Lactic acidosis. 3. Urinary tract infection, presumed due to suprapubic catheter. SECONDARY DISCHARGE DIAGNOSES: Diabetes type 2, noncompliance, benign enlargement of prostate, macro cytic anemia, neurogenic bladder, moderate protein calorie malnutrition. PRIMARY PROCEDURE/OPERATION: None. RADIOLOGICAL INVESTIGATION: Chest x-ray was normal. SIGNIFICANT LABORATORY DATA: WBC 5.4, hemoglobin 13.0, platelets 270, MCV 103. Sodium 137, potassiu m 4.3, BUN 20, creatinine 0.69, calcium 8.9. Urinalysis suggestive of UTI. Serum ketones 0.30. Uri ne culture grew polymicrobial organism. Blood culture negative. DISCHARGE MEDICATIONS: Aspirin 81 mg p.o. daily, vitamin D3 1000 units p.o. daily, AZO 1 capsule p.o . daily, Proscar 5 mg p.o. daily, Humalog insulin 7 units subcu t.i.d., Lantus insulin 20 units subcu b.i.d., Flomax 0.4 mg p.o. daily, folic acid 1 mg p.o. daily, vitamin B12 1000 mcg p.o. daily, eder us sulfate 325 mg p.o. daily, Theragran 1 tablet p.o. daily. CONTRAINDICATIONS: None. CODE STATUS: FULL CODE. INPATIENT CONSULTANTS: This patient was initially followed by Dr. Bose, but this patient fire d her and that is why Dr. Garcia was also consulted. Dr. Ortega was following while in hospital. TEST RESULTS PENDING ON DISCHARGE: None. ALLERGIES: No known drug allergies. DISCHARGE PLAN: Post hospital, patient will follow up with primary care physician and Dr. Garcia as i nstructed after rehabilitation. HOSPITAL COURSE: A 72-year-old male who was admitted by Dr. Haskins. Please see his H&P for furthe r details. This patient is admitted for hyperglycemia. He was not taking his insulin, he has extrem e noncompliance. He was not able to take care of himself at home. His blood sugar was very high and he clinically appeared dehydrated without any acidosis. He also had urinary tract infection. He do es have chronic suprapubic catheter. 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 His urine was growing yeast as well as multiple bacteria. He was receivi ng IV antibiotic therapy while in hospital with levofloxacin and Diflucan. Dr. Ortega was also follow ing while in hospital. During entire hospital course, he never had any fever. He never had any whit e count and that is why Urology came by and saw this patient and they recommended that this patient s hould not be on antibiotic therapy to prevent multidrug resistance and that is why antibiotic therapy was discontinued on discharge. Urology recommended to do bladder irrigation daily basis and that wi ll be done at rehabilitation and suprapubic catheter should be changed every week. This patient init reza was planned to go to home with home health, but patient agreed to go to inpatient rehabilitatio n and that is why we are planning to discharge him to rehabilitation. Yesterday, there was no bed av ailable, but today bed available and that is why patient is otherwise safe to discharge to rehabilita tion. Patient has macrocytic anemia and that is why multivitamin prescribed. He will resume all above-ment ioned medication. While in hospital, we gave him IV fluid. We provided counseling to be compliant w ith medical treatment. He will follow up with Urology, Dr. Garcia. Dr. Bose initially was following, but patient did not like her, then that is why Dr. Garcia was consulted. Paperwork for discharge done. Discharge medication reconciliation done. Total time spent on discharge day more than 30 minutes.
[2017-10-02] MEDS: HumaLOG 300 UNITS/3 ML VIAL SC PRN (12:16)
[2017-10-02 15:16] VITALS: BP 132/76; TEMP 97.1
== END 2017-10-02 17:37 | DRG 699 ==
LOC: ERS 12:23 → T4-B 15:44
PROVIDERS: ADMIT Internal Medicine; ATTEND Internal Medicine
DX: T83.511A Infection and inflammatory reaction due to indwelling urethral catheter, initial encounter (principal); E87.2 Acidosis; E44.0 Moderate protein-calorie malnutrition; E11.65 Type 2 diabetes mellitus with hyperglycemia; D53.9 Nutritional anemia, unspecified; N30.80 Other cystitis without hematuria; Z91.14 Patient's other noncompliance with medication regimen; N40.0 Benign prostatic hyperplasia without lower urinary tract symptoms; N31.9 Neuromuscular dysfunction of bladder, unspecified; I10 Essential (primary) hypertension; F17.210 Nicotine dependence, cigarettes, uncomplicated; Q63.1 Lobulated, fused and horseshoe kidney; Z68.24 Body mass index [BMI] 24.0-24.9, adult
CPT/HCPCS: 36415; 36416; 51102; 71045; 80048; 80053; 81003; 81015; 82010; 83605; 85025; 87040; 87077; 87086; 87149; 87186; 96361; 96365; 96368; 96375; 99285; 99406; A4216; G8978-GP-CL; G8979-GP-CJ; G8987-GO-CK; G8988-GO-CI; J1450; J1644; J1815; J1956; J2543; J3370; J7050